=== PATIENT | female | born 1955 | race Caucasian/White ===

== ENCOUNTER 2022-03-12 10:55 | Observation (INO) ==
[2022-03-12] MEDS ORDERED: CEFEPIME 2,000 MG/20 ML VIAL IV STA (11:19)
[2022-03-12] MEDS ORDERED: SODIUM CHLORIDE 0.9% 1000ML 500 ML IV SCH ×2 (11:30→14:30)
[2022-03-12] MEDS ORDERED: SODIUM CHLORIDE 0.9% 1000ML 1,000 ML IV SCH (11:30)
[2022-03-12] MEDS ORDERED: ONDANSETRON INJ 2 MG/ML 2 ML VIAL IV STA (12:01)
[2022-03-12] MEDS ORDERED: fentaNYL citrate 100 MCG/2 ML VIAL IV ONE (12:01)
--- NOTE | 2022-03-12 12:08 | XRay Report ---
XR chest 1V portable CLINICAL HISTORY: Sepsis TECHNIQUE: Single frontal radiograph of the chest was obtained. Comparison: None available at the time of this dictation. FINDINGS: No lines and tubes are seen. The cardiomediastinal silhouette is normal. The lungs are clear. No evid ence of pleural effusion or pneumothorax. IMPRESSION: No acute abnormalities and in particular no evidence of pneumonia. ACT 112: Negative or not required by law. Electronically signed by: Chucky Cordova M.D. 03/12/2022 12:07 PM
[2022-03-12 12:13] LABS: Hematocrit (blood only) 36.9 % (34.1-44.9); Hemoglobin 12.5 g/dl (12.0-16.0); Mean Corpuscular Hemoglobin 33.1 pg (25.0-34.0); Mean Corpuscular Hgb Conc 33.9 g/dL (32.0-36.0); Mean Corpuscular Volume 97.6 fL (80.0-100.0); Mean Platelet Volume 8.9 fL (9.4-12.3); Platelet Count 287 K/uL (130-400); RDW Coefficient of Variation 16.1 % (11.5-14.5); RDW Standard Deviation 57.8 fL (36.4-46.3); Red Blood Count 3.78 M/uL (3.93-5.22); White Blood Count 5.45 K/ul (4.8-10.8)
[2022-03-12 12:26] LABS: Appearance Urine Cloudy (Clear); Bacteria Urine Automated 1+ (Negative); Bilirubin Urine Negative (Negative); Blood Urine 3+ (Negative); Color Urine Dark Yellow; Glucose Urine UA Negative (Negative); Ketones Urine 1+ (Negative); Leukocyte Esterase Urine 2+ (Negative); Nitrite Urine Positive (Negative); Protein Urine 1+ (Negative); RBC Urine Automated >30 /hpf (0-4); Specific Gravity Urine 1.019 (1.000-1.030); Urobilinogen Urine Negative (Negative); WBC Urine Automated >30 /hpf (0-5); pH Urine 5.5 (4.5-7.5)
[2022-03-12 12:34] LABS: Albumin Level 2.9 gm/dl (3.4-5.0); BUN Creatinine Ratio 28.6 (10-20); Bilirubin Direct 0.1 mg/dl (0-0.2); Bilirubin,Total 0.3 mg/dl (0.2-1.0); Calcium 8.8 mg/dl (8.5-10.1); Creatinine Clr Calc Pharmacy 52.1 ml/min; Est GFR (African American) 83.9 ml/min; Est GFR (Non-African American) 72.4 ml/min; Magnesium 2.1 mg/dl (1.7-2.4); Potassium 3.4 mmol/L (3.5-5.1); Total Protein 6.2 gm/dl (6.0-8.3)
[2022-03-12 12:39] LABS: Troponin I High Sensitivity 6.8 pg/ml (0-14)
[2022-03-12 12:43] LABS: Calcium Oxalate Crystals Urine Present (None Prsent)
[2022-03-12 12:57] LABS: Basophils # (auto) 0.03 K/uL (0-0.2); Basophils % (auto) 0.6 %; Eosinophils # (auto) 0.01 K/uL (0-0.50); Eosinophils % (auto) 0.2 %; Immature Granulocytes # (auto) 0.03 K/uL (0.00-0.02); Immature Granulocytes % (auto) 0.6 %; Lymphocytes # (auto) 0.15 K/uL (1.2-3.4); Lymphocytes % (auto) 2.8 %; Monocytes # (auto) 0.47 K/uL (0.24-0.82); Monocytes % (auto) 8.6 %; Neutrophils # (auto) 4.76 K/uL (1.4-6.5); Neutrophils % (auto) 87.2 %; Toxic Vacuolation 1+
--- NOTE | 2022-03-12 13:35 | CT Scan Report ---
CT abd pelvis wo con CLINICAL HISTORY: renal stone, sepsis TECHNIQUE: Helical axial images of the abdomen and pelvis were obtained. Automated dose lowering tech niques and/or adjustment according to patient size were utilized for this exam. This exam was perfor med without intravenous contrast. CT DOSE: 235.19 mGy.cm COMPARISON: Comparison is made to CT abdomen pelvis 12/14/2021 FINDINGS: Lower chest: Bronchiectasis, bronchial wall thickening, mucus plugging is seen in the left lower lob e. Liver: Unremarkable. No focal lesions are seen. Gallbladder and biliary tree: No calcified gallstones. Normal caliber wall. No intra- or extrahepatic biliary ductal dilation. Pancreas: Unremarkable, no focal lesions. Spleen: Unremarkable. Adrenals: Unremarkable. Kidneys and ureters: Nonobstructive nephrolithiasis is seen. There is an 11 mm cyst in the left kidne y inferior pole. Bladder: Whaley catheter is seen. Reproductive organs: Unremarkable. Bowel: The colon is unremarkable. There is diffuse small bowel wall thickening with mild distention, measuring up to 33 mm, without a firm transition point. Evaluation is limited due to the paucity of i ntra-abdominal fat. Lymph nodes Retroperitoneal: Unremarkable. Pelvic: Unremarkable. Mesenteric: Unremarkable. Peritoneum: Small amount of peritoneal fluid is seen most prominently surrounding the thickened loops of small bowel. Vessels: Atherosclerotic calcifications are seen. Abdominal wall: Unremarkable. Bones: Degenerative changes in the visualized spine. IMPRESSION: 1. There is marked thickening of the small bowel concerning for enteritis. 2. The large bowel appears unremarkable. 3. Nonobstructive nephrolithiasis is seen. ACT 112: Negative or not required by law. Electronically signed by: Chucky Cordova M.D. 03/12/2022 1:32 PM
[2022-03-12] MEDS ORDERED: LORazepam 2 MG/1 ML VIAL IV STA (14:57)
[2022-03-12] MEDS ORDERED: KETOROLAC TROMETHAMINE 15 MG/ML VIAL IV ONE (14:58)
[2022-03-12] MEDS ORDERED: FAMOTIDINE 20 MG in SYRINGE 3 ML IV STA (14:59)
[2022-03-12] MEDS ORDERED: D5W AND NSS 1,000 ML IV SCH (15:00)
--- NOTE | 2022-03-12 15:27 | History & Physical Report ---
Date of Service March 12, 2022 Assessment & Plan (1) UTI (urinary tract infection): Plan: -Admit to med/tele -Patient is currently afebrile, hemodynamically stable, and stable on RA -UA obtained in the ED in consistent with findigns for UTI -Was given one dose of cefepime in the ED, will continue with Ceftriaxone for now, patient denies a previous reaction to ceftriaxone -Patient has been experiencing bladder spasms with her UTI, will order 200 mg PO pyridium TID prn for a total of 2 days -Patient noted to be very dehydrated from diarrhea and poor oral intake, S/P 3L NSS in the ED, will continue with lactated ringer's at 80 ml/hr x 24 hours for hydration as she cannot tolerate po intake at this time -Start a clear liquid diet and advance as able -Urine and blood cultures ordered in the ED, follow (2) Enteritis: Plan: -Noted on CT of the abdomen/pelvis WO contrast today -No signs of bowel obstruction -Ideally we would give her Flagyl to cover anaerobes -Patient has a previously listed allergy to flagyl. Spoke to she and her sister regarding the reaction, they cannot remember the exact reaction but explained that it was no serious. They are ok with a trial and monitoring -Spoke to the ED Pharmacist, appreciate their assitance. Will give 50 mg IV Flagyl over 30 min and will monitor the patient for any reaction over 2 hours. If no reaction then will continue with full dosing after -PRN Solumedrol and benadryl ordered for allergic reaction -Plan explained to her nurse -Monitor on tele and pulse oximetry -Stool and C.diff studies ordered in the ED, follow when collected (3) Malignant neoplasm of anal canal: Plan: -Patient is S/P 21 rounds of radiation and chemo, last doses of both were on 03/03 -She received her care at [facility] In [place] -Records were requested by ED staff, will wait for their arrival (4) Hypokalemia: Plan: -Noted to be 3.4 today, mag WNL -Liekly from diarrhea and poor oral intake -Will give 3 doses of 10 meq IV KCL to avoid further GI upset -Follow AM BMP and mag (5) Migraines: Plan: -Continue topiramate and prn sumatriptan Plan The patient was seen with and discussed with Dr. 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 In the ED the patient was found to be afebrile, hemodynamically stable, tachycardic in the low 100's, and stable on RA. Labs were remarkable for WBC WNL, stable Hgb and platelets, stable renal function, potassium of 3.4, otherwise electrolytes WNL, stable liver function, procal of 2.90, UA indicative of UTI. Chest xray was read as negative for acute findings. CT of the abd/pelvis WO contrast was obtained due to abdominal pain and reported diarrhea and showed "1. There is marked thickening of the small bowel concerning for enteritis. 2. The large bowel appears unremarkable. 3. Nonobstructive nephrolithiasis is seen.". Prior to admission the patient was given a total of 3L NSS, cefepime, fentanyl, 10 mg toradol, 20 mg famotidine, and 1 mg IV ativan. At the time of the exam the patient was resting comfortably in bed in no acute distress with her sister sitting bedside, history was obtained from both. They state that the patient recently completed 21 sessions of radiation and chemotherapy in [place], last dose of both was on 03/03/22. She and her sister are usure of what chemotherapy she received but the ED staff has requested records from her other hospital. They state that since her last discharge on 03/03 the patient has experienced multiple daily episodes of diarrhea with poor oral intake. She states that she developed generalized abdominal pain yesterday. She rates it as an 8/10, cramping pain, which radiates to her back at times. She notes multiple episodes of non-bloody diarrhea daily despite her poor oral intake. She denies recent fevers, chills, chest pain, SOB, vomiting, and recent falls. Her sister notes that the patient has been weak on her legs recently with her poor oral intake. The patient has lost approximately 30 pounds since her diagnosis and treatment of her anal cancer. She also also noted increased BL LE edema since starting her treatment. I spoke to the patient regarding code status, she is a DNR/DNI. Her sister would make decisions for her if she could not make them herself. Rosemarie refer to Dr. Oliveira's attestation for any changes to the treatment plan Allergies Allergy/AdvReac Type Severity Reaction Status Date / Time acetaminophen [From Percocet] Allergy Mild Dizziness Verified 03/12/22 12:52 oxycodone [From Percocet] Allergy Mild Dizziness Verified 03/12/22 12:52 ciprofloxacin [From Cipro] Allergy Unknown Verified 03/12/22 12:52 Penicillins Allergy Unknown Verified 03/12/22 12:52 Sulfa (Sulfonamide Allergy Unknown Verified 03/12/22 12:52 Antibiotics) morphine Allergy Drowsy Verified 03/12/22 12:52 Avalox Allergy Unknown Unknown Uncoded 03/12/22 12:52 Flagyl Allergy Unknown Unknown Uncoded 03/12/22 12:52 Fluoroquinolones Allergy Unknown Unknown Uncoded 03/12/22 12:52 Levaquin Allergy Unknown Unknown Uncoded 03/12/22 12:52 Home Medications Medication Instructions Recorded Confirmed Type Lactobacillus acidophilus 10 5,000 mmu cells PO DAILY 12/23/21 03/12/22 History billion cell capsule acetaminophen 500 mg tablet 500 mg PO QID PRN Pain 12/23/21 03/12/22 History (Tylenol Extra Strength) hrmprek-ebotuxpresuik-blsxvrrx 250 1 tab PO Q6H PRN Headache 12/23/21 03/12/22 History mg-250 mg-65 mg tablet (Excedrin Migraine) cyclobenzaprine 10 mg tablet 10 mg PO TID PRN Muscle Spasm 12/23/21 03/12/22 History docusate sodium 100 mg capsule 100 mg PO BID 12/23/21 03/12/22 History (Colace) hydrocodone 5 mg-acetaminophen 325 1 tab PO Q6H PRN Pain 12/23/21 03/12/22 History mg tablet ibuprofen 200 mg capsule (Motrin 200 mg PO Q6H PRN Pain 12/23/21 03/12/22 History IB) magnesium 250 mg tablet 500 mg PO BID 12/23/21 03/12/22 History ranitidine HCl 150 mg tablet 150 mg PO DAILY PRN Acid Reflux 12/23/21 03/12/22 History sumatriptan succinate 100 mg 100 mg PO Q2H PRN Migraine Headache 12/23/21 03/12/22 History tablet (Imitrex) topiramate 100 mg tablet (Topamax) 100 mg PO BID 12/23/21 03/12/22 History diazepam 2 mg tablet 2 mg PO Q6H PRN Muscle Spasm 03/12/22 03/12/22 History naproxen 220 mg-pseudoephedrine 1 tab PO BID PRN Flu Symptoms 03/12/22 03/12/22 History 120 mg ER tablet, extend release,12 hr (Aleve Cold and Sinus) Past Med/Surg History Medical History (Updated 03/12/22 @ 16:10 by Tay Martinez PA-C) Kidney stones Malignant neoplasm of anus 11/18/21 Melanoma Removed from left scapula area Migraines Right trigger finger Had surgery for this Surgical History (Updated 12/23/21 @ 08:29 by Eli To RN) H/O right breast biopsy 4 yrs ago - benign History of hysterectomy Complete History of surgery 11/18/21 Anal/rectal exam under anesthesia Family History (Updated 12/23/21 @ 08:30 by Eli To, RN) Mother , 48yo Breast cancer Father , 52yo Multiple myeloma Myocardial infarction Brother No problems noted. Sister No problems noted. Sister Hypertension Son No problems noted. 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 All systems have been reviewed and are otherwise negative. Physical Exam Physical Exam: Physical Exam: General: In no acute distress, stated age, chachetic, non-toxic appearing HEENT: Normocephalic, atraumatic, no scleral icterus, pupils around round, symmetrical, and reactive to light, Dry mucus membranes, trachea midline, no thyromegaly Chest/Pulm: No respiratory distress, symmetrical chest expansion, clear breath sounds throughout Cardiac: RRR, no murmurs noted Abdomen: Negative for ascites and bruising, hypoactive bowel sounds, soft, tender to palpation throughout Musculoskeletal: Symmetrical and without signs of acute trauma, upper and lower extremities with full ROM, no atrophy, spasticity, or flaccidity Extremities: Radial, dorsalis pedis, and posterior tibial pulses are intact and symmetrical, 2+ pitting edema noted in the BL LE's Skin: Warm, dry, no rashes , lesions, or scars noted Neuro: Alert and oriented to person, place, month, year, and president, no focal defects, CN II-XII tested and intact, finger to nose test negative, no tremors noted Psych: No acute distress, calm and cooperative during the exam Results & Data Results & Data ([facility]) Vital Signs (Past 12 Hours) Vital Signs Temp Pulse Pulse Resp BP BP Pulse Ox 03/12/22 14:13 103 H 20 105/62 95 03/12/22 14:00 101 H 20 105/62 94 03/12/22 12:55 103 H 20 108/61 94 03/12/22 12:13 97 H 20 107/62 97 03/12/22 11:19 96 H 20 114/69 98 03/12/22 11:19 100 03/12/22 11:02 36.1 C L 114 H 20 90/64 L 95 O2 Del Method 03/12/22 14:13 Room Air 03/12/22 14:00 Room Air 03/12/22 12:55 Room Air 03/12/22 12:13 Room Air 03/12/22 11:19 Room Air 03/12/22 11:19 Room Air 03/12/22 11:02 Room Air Laboratory Results Abnormal lab results 03/12/22 03/12/22 03/12/22 Range/Units 11:40 11:40 11:40 RBC 3.78 L (3.93-5.22) M/uL RDW Std Deviation 57.8 H (36.4-46.3) fL RDW Coeff of Maru 16.1 H (11.5-14.5) % MPV 8.9 L (9.4-12.3) fL Lymph # (Auto) 0.15 L (1.2-3.4) K/uL Immature Gran # (Auto) 0.03 H (0.00-0.02) K/uL Potassium 3.4 L (3.5-5.1) mmol/L BUN 24 H (6-23) mg/dl BUN/Creatinine Ratio 28.6 H (10-20) Glucose 115 H (70-99(Fasting)) mg/dl AST 11 L (13-39) U/L Albumin 2.9 L (3.4-5.0) gm/dl Procalcitonin 2.90 H (0-0.5) ng/ml Urine Appearance (Clear) Urine Protein (Negative) Urine Ketones (Negative) Urine Blood (Negative) Urine Nitrite (Negative) Ur Leukocyte Esterase (Negative) Urine WBC (Auto) (0-5) /hpf Urine RBC (Auto) (0-4) /hpf U Epithel Cells (Auto) (0-5) /lpf Urine Bacteria (Auto) (Negative) Calcium Oxalate Crystal (None Prsent) 03/12/22 Range/Units 11:40 RBC (3.93-5.22) M/uL RDW Std Deviation (36.4-46.3) fL RDW Coeff of Maru (11.5-14.5) % MPV (9.4-12.3) fL Lymph # (Auto) (1.2-3.4) K/uL Immature Gran # (Auto) (0.00-0.02) K/uL Potassium (3.5-5.1) mmol/L BUN (6-23) mg/dl BUN/Creatinine Ratio (10-20) Glucose (70-99(Fasting)) mg/dl AST (13-39) U/L Albumin (3.4-5.0) gm/dl Procalcitonin (0-0.5) ng/ml Urine Appearance Cloudy A (Clear) Urine Protein 1+ H (Negative) Urine Ketones 1+ H (Negative) Urine Blood 3+ H (Negative) Urine Nitrite Positive A (Negative) Ur Leukocyte Esterase 2+ H (Negative) Urine WBC (Auto) >30 H (0-5) /hpf Urine RBC (Auto) >30 H (0-4) /hpf U Epithel Cells (Auto) 5-10 H (0-5) /lpf Urine Bacteria (Auto) 1+ H (Negative) Calcium Oxalate Crystal Present A (None Prsent) Diagnostic Findings Chest X-Ray 03/12/22 11:19 XR chest 1V portable CLINICAL HISTORY: Sepsis TECHNIQUE: Single frontal radiograph of the chest was obtained. Comparison: None available at the time of this dictation. FINDINGS: No lines and tubes are seen. The cardiomediastinal silhouette is normal. The lungs are clear. No evidence of pleural effusion or pneumothorax. IMPRESSION: No acute abnormalities and in particular no evidence of pneumonia. ACT 112: Negative or not required by law. Electronically signed by: Chucky Cordova M.D. 03/12/2022 12:07 PM Abdomen/Pelvis CT 03/12/22 11:20 CT abd pelvis wo con CLINICAL HISTORY: renal stone, sepsis TECHNIQUE: Helical axial images of the abdomen and pelvis were obtained. Automated dose lowering techniques and/or adjustment according to patient size were utilized for this exam. This exam was performed without intravenous contrast. CT DOSE: 235.19 mGy.cm COMPARISON: Comparison is made to CT abdomen pelvis 12/14/2021 FINDINGS: Lower chest: Bronchiectasis, bronchial wall thickening, mucus plugging is seen in the left lower lobe. Liver: Unremarkable. No focal lesions are seen. Gallbladder and biliary tree: No calcified gallstones. Normal caliber wall. No intra- or extrahepatic biliary ductal dilation. Pancreas: Unremarkable, no focal lesions. Spleen: Unremarkable. Adrenals: Unremarkable. Kidneys and ureters: Nonobstructive nephrolithiasis is seen. There is an 11 mm cyst in the left kidney inferior pole. Bladder: Whaley catheter is seen. Reproductive organs: Unremarkable. Bowel: The colon is unremarkable. There is diffuse small bowel wall thickening with mild distention, measuring up to 33 mm, without a firm transition point. Evaluation is limited due to the paucity of intra-abdominal fat. Lymph nodes Retroperitoneal: Unremarkable. Pelvic: Unremarkable. Mesenteric: Unremarkable. Peritoneum: Small amount of peritoneal fluid is seen most prominently surrounding the thickened loops of small bowel. Vessels: Atherosclerotic calcifications are seen. Abdominal wall: Unremarkable. Bones: Degenerative changes in the visualized spine. IMPRESSION: 1. There is marked thickening of the small bowel concerning for enteritis. 2. The large bowel appears unremarkable. 3. Nonobstructive nephrolithiasis is seen. ACT 112: Negative or not required by law. Electronically signed by: Chucky Cordova M.D. 03/12/2022 1:32 PM ECG Additional Comments: Poor data quality, interpretation may be adversely affected Normal sinus rhythm Right atrial enlargement Borderline ECG No previous ECGs available Code Status & VTE Plan Code Status DNR/DNI VTE Prophylaxis Plan VTE Prophylaxis will be ordered: Yes Supervising Physician Co-Signing Physician Notes Patient seen and examined, chart reviewed, case discussed with Tay Martinez PA-C and I agree with the assessment and plan as above except as otherwise noted Labs and images reviewed Nena is a 66-year-old female with a past medical history of migraines, SCC of the anus Tx with chemoradiation, anxiety who presented with abdominal discomfort. Patient recently completed radiation/chemotherapy in [place] as noted. Records are pending. Yesterday patient developed crampy abdominal pain radiating to the back and nonbloody diarrhea with poor p.o. intake. No vomiting. On ER assessment patient is tachycardic, borderline hypotensive, with poor p.o. intake, and with CT showing evidence of small bowel thickening concerning for enteritis. At bedside patient denies fever/chills, has some abdominal discomfort which persists, and endorses continued ongoing diarrhea. No chest pain/chest pressure/difficulty breathing. Given underlying cancer and chemotherapy patient was recommended for additional supportive care and treatment,. CT shows nonobstructive nephrolithiasis, no obstructing stones are present. UA is infected appearing, UC pending. Antibiotics narrowed to Rocephin, given a dose of Flagyl for enteric coverage pending PCR results. Agree with management above. Patient is nondistressed/nontoxic at bedside. She reports she has multiple allergies and is not sure of the reaction, she reports she has never had any allergic reaction which involved her airway/lip/tongue/throat. Pt has an identical twin with similar allergies who is at bedside, reports she does not think she is allergic to Flagyl. PG Care Time/CCT Total # of Minutes Spent Total Time Spent with Patient: Total time spent is greater than 50% in coordination of care (as documented) at patient's floor/unit and/or counseling patient: Coding [place] [address] Initial Inpt Care Lvl 3 Patient Type Established Medical Decision Making High Complexity Diagnoses UTI (urinary tract infection) N39.0 Enteritis K52.9 Malignant neoplasm of anal canal C21.1 Hypokalemia E87.6 Migraines G43.909
[2022-03-12] MEDS: POTASSIUM CHLORIDE / WTR 10 MEQ/100 ML PLCT IV SCH ×3 (15:40→17:48)
[2022-03-12] MEDS ORDERED: diphenhydrAMINE 50 MG/ML VIAL IV PRN (15:56)
[2022-03-12] MEDS ORDERED: methylPREDNISolone 125 MG/2 ML VIAL IV PRN (15:56)
[2022-03-12] MEDS ORDERED: METRONIDAZOLE IV STA (15:59)
[2022-03-12] MEDS ORDERED: PHENAZOPYRIDINE HCL 200 MG TAB PO PRN (16:02)
[2022-03-12] MEDS ORDERED: methylPREDNISolone 60 MG in SYRINGE 0 ML IV PRN (16:09)
[2022-03-12] MEDS ORDERED: cefTRIAXone SODIUM 2,000 MG in DEXTROSE 5% 50 ML IV SCH (16:30)
[2022-03-12] MEDS: LACTATED RINGER'S 1,000 ML IV SCH (16:43)
[2022-03-12] MEDS ORDERED: CYCLOBENZAPRINE HCL 10 MG TAB PO PRN (17:55)
[2022-03-12] MEDS ORDERED: SUMAtriptan succinate 100 MG TAB PO PRN (17:55)
[2022-03-12] MEDS ORDERED: diazePAM 2 MG TABLET PO PRN (17:55)
[2022-03-12] MEDS: metroNIDAZOLE 500 MG/100 ML BAG IV SCH (20:41)
[2022-03-12] MEDS: PANTOprazole 40 MG in SYRINGE 0 ML IV SCH (20:43)
[2022-03-12] MEDS: TOPIRAMATE 100 MG TAB PO SCH (20:43)
[2022-03-12] MEDS: MAGNESIUM OXIDE 400 MG TAB PO SCH (20:43)
[2022-03-13] MEDS ORDERED: IBUPROFEN 600 MG TAB PO STA (02:53)
[2022-03-13] MEDS: LACTATED RINGER'S 1,000 ML IV SCH ×3 (03:41→17:40)
[2022-03-13] MEDS: metroNIDAZOLE 500 MG/100 ML BAG IV SCH ×2 (03:41→12:05)
--- NOTE | 2022-03-13 06:13 | Electrocardiogram Report ---
Test Reason : Blood Pressure : / mmHG Vent. Rate : 096 BPM Atrial Rate : 096 BPM P-R Int : 148 ms QRS Dur : 078 ms QT Int : 394 ms P-R-T Axes : 092 088 091 degrees QTc Int : 497 ms Poor data quality, interpretation may be adversely affected Normal sinus rhythm Right atrial enlargement Borderline ECG No previous ECGs available Confirmed by Adria Cash ([id number]) on 03/13/2022 6:13:07 AM Referred By: REFERRED SELF Confirmed By:Adria Cash
[2022-03-13] MEDS: MAGNESIUM OXIDE 400 MG TAB PO SCH ×2 (07:34→20:17)
[2022-03-13] MEDS: TOPIRAMATE 100 MG TAB PO SCH ×2 (07:34→20:18)
[2022-03-13] MEDS: ADVANCED PROBIOTIC 1250 MG CAPSULE PO SCH (07:34)
[2022-03-13] MEDS: PANTOprazole 40 MG in SYRINGE 0 ML IV SCH (07:34)
[2022-03-13] MEDS ORDERED: CEFEPIME 1,000 MG in SYRINGE 0 ML IV SCH (09:00)
[2022-03-13 09:01] LABS: Hematocrit (blood only) 31.5 % (34.1-44.9); Hemoglobin 10.6 g/dl (12.0-16.0); Mean Corpuscular Hemoglobin 32.9 pg (25.0-34.0); Mean Corpuscular Hgb Conc 33.7 g/dL (32.0-36.0); Mean Corpuscular Volume 97.8 fL (80.0-100.0); Platelet Count 237 K/uL (130-400); RDW Coefficient of Variation 16.5 % (11.5-14.5); Red Blood Count 3.22 M/uL (3.93-5.22); White Blood Count 3.23 K/ul (4.8-10.8)
[2022-03-13 09:52] LABS: Albumin Globulin Ratio 0.9 (0.9-2); Albumin Level 2.3 gm/dl (3.4-5.0); BUN Creatinine Ratio 17.8 (10-20); Bilirubin,Total 0.3 mg/dl (0.2-1.0); Calcium 7.5 mg/dl (8.5-10.1); Est GFR (African American) 99.5 ml/min; Est GFR (Non-African American) 85.8 ml/min; Globulin 2.5 gm/dl (2.5-4.0); Magnesium 1.9 mg/dl (1.7-2.4); Potassium 3.6 mmol/L (3.5-5.1); Total Protein 4.8 gm/dl (6.0-8.3)
[2022-03-13] MEDS: HYDROCODONE/ACETAMOPHEN 5/325MG TAB PO PRN ×2 (12:04→23:27)
[2022-03-13 13:39] LABS: Adenovirus F 40/41 PCR Not Detected (NotDetected); Astrovirus PCR Not Detected (NotDetected); Campylobacter PCR Not Detected (NotDetected); Cryptosporidium PCR Not Detected (NotDetected); Cyclospora cayetanensis PCR Not Detected (NotDetected); Entamoeba histolytica PCR Not Detected (NotDetected); Enteroaggregative E.coli(EAEC) Not Detected (NotDetected); Enteropathogenic E.coli (EPEC) Not Detected (NotDetected); Enterotoxigenic E.coli (ETEC) Not Detected (NotDetected); Giardia lamblia PCR Not Detected (NotDetected); Norovirus GI/GII PCR Not Detected (NotDetected); Plesiomonas shigelloides PCR Not Detected (NotDetected); Rotavirus A PCR Not Detected (NotDetected); Salmonella PCR Not Detected (NotDetected); Sapovirus PCR Not Detected (NotDetected); Shiga-like Toxin E.coli (STEC) Not Detected (NotDetected); Shigella/Enteroinvasive E.coli Not Detected (NotDetected); Vibrio cholerae PCR Not Detected (NotDetected); Vibrio species PCR Not Detected (NotDetected); Yersinia enterocolitica PCR Not Detected (NotDetected)
--- NOTE | 2022-03-13 18:02 | Hospitalist Progress Note ---
Date of Service March 13, 2022 Assessment & Plan (1) UTI (urinary tract infection): Plan: - Likely Pseudomonasceftriaxone stopped and cefepime started today -Patient is currently afebrile, hemodynamically stable, and stable on RA BP in the 90sstill quite hypovolemicpoor appetite last 3 to 4 weeks and 35 pound weight loss Telemetry discontinued -Patient has been experiencing bladder spasms with her UTI- on 200 mg PO pyridium TID prn for a total of 2 days Dehydration: Increased lactated ringer's to 125 ml/hr x 24 hours for hydration Regular diet started Urged to drink more fluids of her choice The patient was discharged 5 days ago 03/08 from [facility] after left hydronephrosis was diagnosed with bilateral nonobstructing renal calculi. Whaley was removed and she was voiding at discharge. He was started on diazepam there for renal colic. Will stop. Blood pressures there were 90s/ 60s over 3 days. Potassium 3.4-3.7, sinus tachycardia noted Whaley has been removed today here. -Urine and blood cultures pending final (2) Depression: Plan: Is single, no children and lives with 3 cats. Has a supportive twin sister in the same town. Wants to go back to work in the [employer]. Admits to crying spells. Check TSH and B12 Started Lexapro 10 mg with her consent today (3) Malignant neoplasm of anal canal: Plan: -Patient is S/P 21 rounds of radiation and chemo, last doses of both were on 03/03 -She received her care at [facility] In [place] (4) Hypokalemia: Plan: -Normalized potassium 3.6 today -Follow AM BMP and mag (5) Migraines: Plan: -Continue topiramate and prn sumatriptan Plan The patient is ambulating on her own. Once euvolemic and final urine culture back can be discharged home. Has an appointment 03/15 with oncology and [place] and in March sees radiation oncology Of significance, the patient states she does not want any further treatments. She told me if her cancer has spread she does not want to know about it. I reassured her that we have no indication it has and it was not metastatic per radiation oncology note from December 23. Admission and Anticipated Discharge Date Admission Date: March 12, 2022 Subjective seen at 1545 h Complains of epigastric pain extending to the upper chest and going through to the back for the last 10 days along with poor appetite since she had radiation chemotherapy for anal cancer. This therapy finished 10 days ago. She is lost 35 pounds in the last 3 weeks. She feels very weak and tired but is able to walk. Denies nausea or vomiting. Mitts to depressed mood and crying spells. Occasionally has loose stools and denies any mucus in the stool. Today had stool of pudding consistency which was sent sample to the lab. Also has intermittent migraines which are longstanding and treated with Imitrex as needed. Usually has 3 bowel movements a day. No fever at home. Postnasal drip on and off. Cough with brownish-brownish sputum lately. No shortness of breath. 50 pack history of smoking and is down to 5 cigarettes a day. Started cutting down from 1 pack to 5 cigarettes earlier this year Physical Exam Physical Exam: Pleasant thin lady, lucid historian who cannot give me a very detailed history starting from when she was initially diagnosed with hemorrhoids and 6 months later with rectal cancer. 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 Psych good insight and judgment, briefly tearful Abdomen mild epigastric tenderness and some right lower quadrant tenderness, there is a linear area of breakdown from the lower sacrum to the anus Skin diffuse erythema of the perineum and labia area Results & Data Results & Data ([facility]) Vital Signs (Past 12 Hours) Vital Signs Temp Pulse Pulse Resp BP Pulse Ox Pulse Ox 03/13/22 11:19 94 03/13/22 15:07 36.7 C 81 18 91/55 L 94 03/13/22 11:11 36.4 C L 88 18 91/50 L 95 03/13/22 08:01 36.7 C 86 20 93/51 L 93 03/13/22 07:21 92 H O2 Del Method O2 Del Method 03/13/22 11:19 Room Air 03/13/22 15:07 Room Air 03/13/22 11:11 Room Air 03/13/22 08:01 Room Air 03/13/22 07:21 Laboratory Results Abnormal lab results 03/13/22 03/13/22 Range/Units 08:27 08:27 WBC 3.23 L (4.8-10.8) K/ul RBC 3.22 L (3.93-5.22) M/uL Hgb 10.6 L (12.0-16.0) g/dl Hct 31.5 L (34.1-44.9) % RDW Std Deviation 58.0 H (36.4-46.3) fL RDW Coeff of Maru 16.5 H (11.5-14.5) % MPV 9.0 L (9.4-12.3) fL Chloride 109 H (98-107) mmol/L Calcium 7.5 L (8.5-10.1) mg/dl AST 8 L (13-39) U/L Total Protein 4.8 L D (6.0-8.3) gm/dl Albumin 2.3 L (3.4-5.0) gm/dl Medications Administered Home Medications Medication Instructions Recorded Confirmed Last Taken Lactobacillus acidophilus 10 5,000 mmu cells PO DAILY 12/23/21 03/12/22 03/12/22 billion cell capsule acetaminophen 500 mg tablet 500 mg PO QID PRN Pain 12/23/21 03/12/22 Unknown (Tylenol Extra Strength) [id number]-dgukrdlriqrub-jrzrvfog 250 1 tab PO Q6H PRN Headache 12/23/21 03/12/22 Unknown mg-250 mg-65 mg tablet (Excedrin Migraine) cyclobenzaprine 10 mg tablet 10 mg PO TID PRN Muscle Spasm 12/23/21 03/12/22 Unknown docusate sodium 100 mg capsule 100 mg PO BID 12/23/21 03/12/22 03/12/22 (Colace) hydrocodone 5 mg-acetaminophen 325 1 tab PO Q6H PRN Pain 12/23/21 03/12/22 03/12/22 mg tablet ibuprofen 200 mg capsule (Motrin 200 mg PO Q6H PRN Pain 12/23/21 03/12/22 03/12/22 IB) magnesium 250 mg tablet 500 mg PO BID 12/23/21 03/12/22 03/12/22 ranitidine HCl 150 mg tablet 150 mg PO DAILY PRN Acid Reflux 12/23/21 03/12/22 Unknown sumatriptan succinate 100 mg 100 mg PO Q2H PRN Migraine Headache 12/23/21 03/12/22 Unknown tablet (Imitrex) topiramate 100 mg tablet (Topamax) 100 mg PO BID 12/23/21 03/12/22 03/12/22 diazepam 2 mg tablet 2 mg PO Q6H PRN Muscle Spasm 03/12/22 03/12/22 Unknown naproxen 220 mg-pseudoephedrine 1 tab PO BID PRN Flu Symptoms 03/12/22 03/12/22 Unknown 120 mg ER tablet, extend release,12 hr (Aleve Cold and Sinus) Active Medications Generic Name Dose Route Start Last Admin Trade Name Freq PRN Reason Stop Dose Admin Hydrocodone Bitart/Acetaminophen 1 tab 03/12/22 17:55 03/13/22 12:04 Hydrocodone/Acetamophen 5/325mg Tab PO 03/26/22 17:54 1 tab Q6H PRN Administration Pain Cyclobenzaprine HCl 10 mg 03/12/22 17:55 03/13/22 12:05 Cyclobenzaprine Hcl 10 Mg Tab PO 04/11/22 17:54 10 mg TID PRN Administration Muscle Spasm Diazepam 2 mg 03/12/22 17:55 03/12/22 22:21 Diazepam 2 Mg Tablet PO 04/11/22 17:54 2 mg Q6H PRN Administration Muscle Spasm Lactated Ringer's 1,000 mls @ 125 mls/hr 03/13/22 17:30 03/13/22 17:40 Lr IV 03/14/22 09:29 125 mls/hr .Q8H HILARIA Administration Lactobacillus Acidophilus 1 cap 03/13/22 09:00 03/13/22 07:34 Advanced Probiotic 1250 Mg Capsule PO 04/12/22 08:59 1 cap DAILY HILARIA Administration Magnesium Oxide 400 mg 03/12/22 21:00 03/13/22 07:34 Magnesium Oxide 400 Mg Tab PO 04/11/22 20:59 400 mg BID HILARIA Administration Topiramate 100 mg 03/12/22 21:00 03/13/22 07:34 Topiramate 100 Mg Tab PO 04/11/22 20:59 100 mg BID HILARIA Administration PG Care Time/CCT Total # of Minutes Spent Total Time Spent with Patient: Total time spent is greater than 50% in coordination of care (as documented) at patient's floor/unit and/or counseling patient: Coding Level of Care Code 99196 Subseq Hosp Care Lvl 3 Diagnoses UTI (urinary tract infection) N39.0 Depression F32.A Malignant neoplasm of anal canal C21.1 Hypokalemia E87.6 Migraines G43.909
[2022-03-13] MEDS: CEFEPIME 2,000 MG in SYRINGE 0 ML IV SCH (20:17)
[2022-03-13] MEDS ORDERED: LOPERAMIDE HCL 2 MG CAP PO STA (23:27)
[2022-03-14] MEDS: LACTATED RINGER'S 1,000 ML IV SCH (00:14)
[2022-03-14 07:08] LABS: Hematocrit (blood only) 29.8 % (34.1-44.9); Hemoglobin 10.1 g/dl (12.0-16.0); Mean Corpuscular Hemoglobin 32.7 pg (25.0-34.0); Mean Corpuscular Hgb Conc 33.9 g/dL (32.0-36.0); Mean Corpuscular Volume 96.4 fL (80.0-100.0); Mean Platelet Volume 9.4 fL (9.4-12.3); Platelet Count 218 K/uL (130-400); RDW Coefficient of Variation 16.2 % (11.5-14.5); RDW Standard Deviation 56.7 fL (36.4-46.3); Red Blood Count 3.09 M/uL (3.93-5.22); White Blood Count 2.76 K/ul (4.8-10.8)
[2022-03-14 07:43] LABS: Albumin Globulin Ratio 0.9 (0.9-2); Albumin Level 2.1 gm/dl (3.4-5.0); BUN Creatinine Ratio 13.4 (10-20); Bilirubin,Total 0.2 mg/dl (0.2-1.0); Calcium 7.4 mg/dl (8.5-10.1); Creatinine Clr Calc Pharmacy 65.3 ml/min; Est GFR (African American) 106.2 ml/min; Est GFR (Non-African American) 91.6 ml/min; Globulin 2.3 gm/dl (2.5-4.0); Potassium 3.3 mmol/L (3.5-5.1); Prealbumin 6.1 mg/dl (20-40); Total Protein 4.4 gm/dl (6.0-8.3)
[2022-03-14] MEDS: ESCITALOPRAM OXALATE 10 MG TAB PO SCH (07:59)
[2022-03-14] MEDS: MAGNESIUM OXIDE 400 MG TAB PO SCH ×2 (08:00→20:27)
[2022-03-14] MEDS: ADVANCED PROBIOTIC 1250 MG CAPSULE PO SCH (08:00)
[2022-03-14] MEDS: PANTOprazole 40 MG TAB PO SCH (08:00)
[2022-03-14] MEDS: TOPIRAMATE 100 MG TAB PO SCH ×2 (08:00→20:29)
[2022-03-14] MEDS: CEFEPIME 2,000 MG in SYRINGE 0 ML IV SCH (08:00)
[2022-03-14] MEDS ORDERED: ESCITALOPRAM OXALATE 10 MG TAB PO SCH (09:00)
[2022-03-14] MEDS ORDERED: ONDANSETRON INJ 2 MG/ML 2 ML VIAL IV STA (09:14)
[2022-03-14] MEDS ORDERED: ONDANSETRON INJ 2 MG/ML 2 ML VIAL ONE (09:19)
[2022-03-14] MEDS ORDERED: LACTATED RINGER'S 1,000 ML IV SCH (09:45)
[2022-03-14] MEDS: POTASSIUM CHLORIDE / WTR 10 MEQ/100 ML PLCT IV SCH ×3 (10:51→12:57)
--- NOTE | 2022-03-14 12:03 | Hospitalist Progress Note ---
Date of Service March 14, 2022 Assessment & Plan (1) UTI (urinary tract infection): Plan: - Pseudomonas UTIcefepime day 1. Started ciprofloxacin after stopping cefepime today. Total 3 days antibiotics -Patient is currently afebrile, hemodynamically stable, and stable on RA BP in the 90sstill quite hypovolemicpoor appetite last 3 to 4 weeks and 35 pound weight loss -Patient has been experiencing bladder spasms with her UTI- on 200 mg PO pyridium TID prn for a total of 2 days Dehydration improving. BP better The patient was discharged 03/08 from [facility] after left hydronephrosis was diagnosed with bilateral nonobstructing renal calculi. Whaley was removed and she was voiding at discharge. He was started on diazepam there for renal colic. Will stop. Blood pressures there were 90s/ 60s over 3 days. Potassium 3.4-3.7, sinus tachycardia noted -Urine and blood cultures pending final (2) Depression: Plan: Is single, no children and lives with 3 cats. Has a supportive twin sister in the same town. Wants to go back to work in the [employer]. Admits to crying spells. TSH and B12 normal Started Lexapro 10 mg with her consent today (3) Malignant neoplasm of anal canal: Plan: -Patient is S/P 21 rounds of radiation and chemo, last doses of both were on 03/03 -She received her care at [facility] In [place] per admitting provider. 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 -Follow AM BMP and mag (5) Protein calorie malnutrition: Plan: Prealbumin only 6. Dietitian for boost supplements Patient is not aware of this diagnosis she is lost appetite and is eating only 20% or so for meals. Keeps saying she wants pizza and hobbies. 35 pound weight loss in the last few months. (6) Migraines: Plan: -Continue topiramate and prn sumatriptan Plan The patient is ambulating on her own. Anticipate discharge in the morning has an appointment 03/15 with oncology (patient has been asked to postpone to next week) and [place] and in March sees radiation oncology Of significance, the patient states she does not want any further treatments. She told me if her cancer has spread she does not want to know about it. I reassured her that we have no indication it has and it was not metastatic per radiation oncology note from December 23. 03/14 declined palliative care consult for advice.. Admission and Anticipated Discharge Date Admission Date: March 12, 2022 Subjective seen 1145 h Had a BM soft today. Wants a dulcolax suppository for full evacuation Was tearful this am reports nursingconcerned about needing hospital stays post chemo ended Feb-this is her second hospitalization since 03 March Epigastric pain and bloating still there. 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 Psych: good insight and judgment, appropriate affect, Abdomen mild epigastric tenderness,minimal guarding, Results & Data Results & Data ([facility]) Vital Signs (Past 12 Hours) Vital Signs Temp Pulse Resp BP Pulse Ox O2 Del Method 03/14/22 09:00 Room Air 03/14/22 07:36 36.7 C 87 18 102/64 94 Room Air Laboratory Results Abnormal lab results 03/14/22 03/14/22 03/14/22 Range/Units 06:30 06:30 06:30 WBC 2.76 L (4.8-10.8) K/ul RBC 3.09 L (3.93-5.22) M/uL Hgb 10.1 L (12.0-16.0) g/dl Hct 29.8 L (34.1-44.9) % RDW Std Deviation 56.7 H (36.4-46.3) fL RDW Coeff of Maru 16.2 H (11.5-14.5) % Potassium 3.3 L (3.5-5.1) mmol/L Chloride 108 H (98-107) mmol/L Calcium 7.4 L (8.5-10.1) mg/dl AST 9 L (13-39) U/L Total Protein 4.4 L (6.0-8.3) gm/dl Albumin 2.1 L (3.4-5.0) gm/dl Globulin 2.3 L (2.5-4.0) gm/dl Prealbumin 6.1 L (20-40) mg/dl Vitamin B12 1252 H (180-914) pg/ml TSH (0.300-4.500) uIu/ml 03/14/22 Range/Units 06:30 WBC (4.8-10.8) K/ul RBC (3.93-5.22) M/uL Hgb (12.0-16.0) g/dl Hct (34.1-44.9) % RDW Std Deviation (36.4-46.3) fL RDW Coeff of Maru (11.5-14.5) % Potassium (3.5-5.1) mmol/L Chloride (98-107) mmol/L Calcium (8.5-10.1) mg/dl AST (13-39) U/L Total Protein (6.0-8.3) gm/dl Albumin (3.4-5.0) gm/dl Globulin (2.5-4.0) gm/dl Prealbumin (20-40) mg/dl Vitamin B12 (180-914) pg/ml TSH 5.818 H (0.300-4.500) uIu/ml Medications Administered Home Medications Medication Instructions Recorded Confirmed Last Taken Lactobacillus acidophilus 10 5,000 mmu cells PO DAILY 12/23/21 03/12/22 03/12/22 billion cell capsule acetaminophen 500 mg tablet 500 mg PO QID PRN Pain 12/23/21 03/12/22 Unknown (Tylenol Extra Strength) gdvpihs-otbhdtmqtvfrn-prorzcgf 250 1 tab PO Q6H PRN Headache 12/23/21 03/12/22 Unknown mg-250 mg-65 mg tablet (Excedrin Migraine) cyclobenzaprine 10 mg tablet 10 mg PO TID PRN Muscle Spasm 12/23/21 03/12/22 Unknown docusate sodium 100 mg capsule 100 mg PO BID 12/23/21 03/12/22 03/12/22 (Colace) hydrocodone 5 mg-acetaminophen 325 1 tab PO Q6H PRN Pain 12/23/21 03/12/22 03/12/22 mg tablet ibuprofen 200 mg capsule (Motrin 200 mg PO Q6H PRN Pain 12/23/21 03/12/22 03/12/22 IB) magnesium 250 mg tablet 500 mg PO BID 12/23/21 03/12/22 03/12/22 ranitidine HCl 150 mg tablet 150 mg PO DAILY PRN Acid Reflux 12/23/21 03/12/22 Unknown sumatriptan succinate 100 mg 100 mg PO Q2H PRN Migraine Headache 12/23/21 03/12/22 Unknown tablet (Imitrex) topiramate 100 mg tablet (Topamax) 100 mg PO BID 12/23/21 03/12/22 03/12/22 diazepam 2 mg tablet 2 mg PO Q6H PRN Muscle Spasm 03/12/22 03/12/22 Unknown naproxen 220 mg-pseudoephedrine 1 tab PO BID PRN Flu Symptoms 03/12/22 03/12/22 Unknown 120 mg ER tablet, extend release,12 hr (Aleve Cold and Sinus) Active Medications Generic Name Dose Route Start Last Admin Trade Name Freq PRN Reason Stop Dose Admin Hydrocodone Bitart/Acetaminophen 1 tab 03/12/22 17:55 03/13/22 23:27 Hydrocodone/Acetamophen 5/325mg Tab PO 03/26/22 17:54 1 tab Q6H PRN Administration Pain Cyclobenzaprine HCl 10 mg 03/12/22 17:55 03/13/22 12:05 Cyclobenzaprine Hcl 10 Mg Tab PO 04/11/22 17:54 10 mg TID PRN Administration Muscle Spasm Escitalopram Oxalate 5 mg 03/14/22 09:00 03/14/22 07:59 Escitalopram Oxalate 10 Mg Tab PO 04/13/22 08:59 5 mg QAM HILARIA Administration Cefepime HCl 2,000 mg/ Syringe 20 mls @ 5 mls/min 03/13/22 21:00 03/14/22 08:00 IV 03/23/22 08:59 5 mls/min Q12 HILARIA Administration Lactated Ringer's 1,000 mls @ 100 mls/hr 03/14/22 09:45 03/14/22 09:45 Lr IV 04/13/22 09:44 100 mls/hr .Q10H HILARIA Administration Potassium Chloride 10 meq in 100 mls @ 100 mls/hr 03/14/22 10:45 03/14/22 11:56 K Avery / Wtr IV 03/14/22 13:44 100 mls/hr Q1H HILARIA Administration Lactobacillus Acidophilus 1 cap 03/13/22 09:00 03/14/22 08:00 Advanced Probiotic 1250 Mg Capsule PO 04/12/22 08:59 1 cap DAILY HILARIA Administration Magnesium Oxide 400 mg 03/12/22 21:00 03/14/22 08:00 Magnesium Oxide 400 Mg Tab PO 04/11/22 20:59 Not Given BID HILARIA Pantoprazole Sodium 40 mg 03/14/22 09:00 03/14/22 08:00 Pantoprazole 40 Mg Tab PO 04/13/22 08:59 40 mg QAM HILARIA Administration Topiramate 100 mg 03/12/22 21:00 03/14/22 08:00 Topiramate 100 Mg Tab PO 04/11/22 20:59 100 mg BID HILARIA Administration PG Care Time/CCT Total # of Minutes Spent Total Time Spent with Patient: Total time spent is greater than 50% in coordination of care (as documented) at patient's floor/unit and/or counseling patient: Coding Level of Care Code 17754 Subseq Hosp Care Lvl 2 Diagnoses UTI (urinary tract infection) N39.0 Depression F32.A Malignant neoplasm of anal canal C21.1 Hypokalemia E87.6 Protein calorie malnutrition E46 Migraines G43.909
[2022-03-14] MEDS ORDERED: bisacodyL 5 MG TABEC PO ONE (12:07)
[2022-03-14] MEDS: SUCRALFATE 1 GM/10 ML UDC PO SCH ×2 (13:51→20:27)
[2022-03-14] MEDS ORDERED: Nursing to Pharmacy Communication SCH (18:00)
[2022-03-14] MEDS: HYDROCODONE/ACETAMOPHEN 5/325MG TAB PO PRN (18:04)
[2022-03-14] MEDS: ONDANSETRON INJ 2 MG/ML 2 ML VIAL IV PRN (18:06)
[2022-03-14] MEDS ORDERED: CIPROFLOXACIN 500 MG TAB PO SCH (21:00)
[2022-03-15] MEDS: HYDROCODONE/ACETAMOPHEN 5/325MG TAB PO PRN (00:07)
[2022-03-15] MEDS: ONDANSETRON INJ 2 MG/ML 2 ML VIAL IV PRN ×2 (00:07→11:58)
--- NOTE | 2022-03-15 00:14 | Communication Note ---
Date of Service: March 15, 2022 Received message from RN around midnight that patient was ordered ciprofloxacin BID for her UTI. However, patient reports anaphylactic allergy to ciprofloxacin. She has a levofloxacin allergy listed as well. As such, will switch back to cefepime for the time being, so alternate antibiotic regimens may be considered between attending and patient in the morning.
[2022-03-15] MEDS: CEFEPIME 2,000 MG in SYRINGE 0 ML IV SCH ×2 (01:35→14:18)
[2022-03-15 07:42] LABS: BUN Creatinine Ratio 8.8 (10-20); Calcium 7.3 mg/dl (8.5-10.1); Creatinine Clr Calc Pharmacy 64.4 ml/min; Est GFR (African American) 105.6 ml/min; Est GFR (Non-African American) 91.2 ml/min; Potassium 3.6 mmol/L (3.5-5.1)
[2022-03-15] MEDS: SUCRALFATE 1 GM/10 ML UDC PO SCH ×2 (08:02→14:18)
[2022-03-15] MEDS: ADVANCED PROBIOTIC 1250 MG CAPSULE PO SCH (08:03)
[2022-03-15] MEDS: MAGNESIUM OXIDE 400 MG TAB PO SCH (08:03)
[2022-03-15] MEDS: PANTOprazole 40 MG TAB PO SCH (08:03)
[2022-03-15] MEDS: TOPIRAMATE 100 MG TAB PO SCH (08:03)
[2022-03-15] MEDS: ESCITALOPRAM OXALATE 10 MG TAB PO SCH (08:03)
[2022-03-15] MEDS ORDERED: STAT IV STA (08:33)
[2022-03-15] MEDS ORDERED: CALCIUM GLUCONATE 10% 2,000 MG in DEXTROSE 5% 50 ML IV ONE (08:33)
--- NOTE | 2022-03-15 11:15 | Discharge Summary ---
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 In the ED the patient was found to be afebrile, hemodynamically stable, tachycardic in the low 100's, and stable on RA. Labs were remarkable for WBC WNL, stable Hgb and platelets, stable renal function, potassium of 3.4, otherwise electrolytes WNL, stable liver function, procal of 2.90, UA indicative of UTI. Chest xray was read as negative for acute findings. CT of the abd/pelvis WO contrast was obtained due to abdominal pain and reported diarrhea and showed "1. There is marked thickening of the small bowel concerning for enteritis. 2. The large bowel appears unremarkable. 3. Nonobstructive nephrolithiasis is seen.". Prior to admission the patient was given a total of 3L NSS, cefepime, fentanyl, 10 mg toradol, 20 mg famotidine, and 1 mg IV ativan. At the time of the exam the patient was resting comfortably in bed in no acute distress with her sister sitting bedside, history was obtained from both. They state that the patient recently completed 21 sessions of radiation and chemotherapy in [place], he last dose of both was on 03/03/22. She and her sister are usure of what chemotherapy she received but the ED staff has requested records from her other hospital. They state that since her last discharge on 03/03 the patient has experienced multiple daily episodes of diarrhea with poor oral intake. She states that she developed generalized abdominal pain yesterday. She rates it as an 8/10, cramping pain, which radiates to her back at times. She notes multiple episodes of non-bloody diarrhea daily despite her poor oral intake. She denies recent fevers, chills, chest pain, SOB, vomiting, and recent falls. Her sister notes that the patient has been weak on her legs recently with her poor oral intake. The patient has lost approximately 30 pounds since her diagnosis and treatment of her anal cancer. She also also noted increased BL LE edema since starting her treatment. I spoke to the patient regarding code status , she is a DNR/DNI. Her sister would make decisions for her if she could not make them herself. Island refer to Dr. Oliveira's attestation for any changes to the treatment plan Principal Diagnosis Uncomplicated Pseudomonas UTI, hypokalemia, depression disorder Discharge Exam General-alert and oriented x3, no fevers, no chills HEENT-head atraumatic and normocephalic, pupils equal and reactive to light, extraocular muscles intact Neck-no lymphadenopathy or thyromegaly, trachea midline Chest-clear to auscultation percussion. No rales wheezing or rhonchi Cardiac-regular rate and rhythm, normal S1 and S2, no murmurs Abdomen-normal bowel sounds, nontender, no hepatosplenomegaly Extremities-no cyanosis, clubbing, or edema Neuro-cranial nerves II through XII intact, motor and sensory function within normal limits, strength symmetrical , no focal deficits Psych-normal affect, normal mood Discharge Data Allergies Allergy/AdvReac Type Severity Reaction Status Date / Time acetaminophen [From Percocet] Allergy Mild Dizziness Verified 03/12/22 12:52 oxycodone [From Percocet] Allergy Mild Dizziness Verified 03/12/22 12:52 ciprofloxacin [From Cipro] Allergy Unknown Unknown Verified 03/14/22 20:25 levofloxacin Allergy Unknown Unknown Verified 03/14/22 20:25 metronidazole Allergy Unknown Unknown Verified 03/14/22 20:26 morphine Allergy Unknown Drowsy Verified 03/14/22 20:25 moxifloxacin Allergy Unknown Unknown Verified 03/14/22 20:25 Penicillins Allergy Unknown Unknown Verified 03/14/22 20:25 Sulfa (Sulfonamide Allergy Unknown Unknown Verified 03/14/22 20:25 Antibiotics) Consultations 03/12/22 15:02 ED Decision to Admit Stat Ordered Studies 03/12/22 11:20 CT abd pelvis wo con Stat Hospital Course (1) UTI (urinary tract infection): - Pseudomonas UTIcefepime day 2. Home on cefdinir. Bladder spasms resolved. -Urine and blood cultures pending final (2) Depression: Is single, no children and lives with 3 cats. Has a supportive twin sister in the same town. Wants to go back to work in the [employer]. Admits to crying spells. TSH and B12 normal Started Lexapro 10 mg this admission (3) Malignant neoplasm of anal canal: -Patient is S/P 21 rounds of radiation and chemo, last doses of both were on 03/03 -She received her care at [facility] In [place] per admitting provider. (4) Hypokalemia: Hypokalemia has been corrected. Parenteral calcium replacement again today prior to discharge (5) Protein calorie malnutrition: Prealbumin only 6. Dietitian for boost supplements. Patient is not aware of this diagnosis she is lost appetite and is eating only 20% or so for meals. Keeps saying she wants pizza and hobbies. 35 pound weight loss in the last few months. (6) Migraines: Continue topiramate and prn sumatriptan Plan Stable for discharge home todayMarch 15 Total Time Total Time Spent Total Time Spent (In Minutes): 35 minutes Discharge Plan Discharge Items Patient Disposition: Home - Self-Care Reason For Visit: ABDOMINAL PAIN Discharge Diagnosis: Pseudomonas UTI, depression disorder, hypokalemia Activity: Resume your previous activity Non-emergency contact: Primary Care Provider Call non-emergency contact if: you have any medication questions Follow-up/Referrals: Roberto Carlos Estrada MD [Primary Care Provider] - Diet: Regular Addtl Attending Provider Instructions: Take cefdinir antibiotic for 2 more days for the urinary tract infection. Lexapro is new for depression Pending Studies at Discharge: No Stand-Alone Forms: My [employer], Smoking Cessation Medications and DC Order Prescriptions: New cefdinir 300 mg capsule 300 mg PO BID Qty: 6 0RF escitalopram oxalate 10 mg Tablet 5 mg PO QAM Qty: 20 0RF Continued cyclobenzaprine 10 mg tablet 10 mg PO TID PRN (Reason: Muscle Spasm) ibuprofen [Motrin IB] 200 mg capsule 200 mg PO Q6H PRN (Reason: Pain) Lactobacillus acidophilus 10 billion cell capsule 5,000 mmu cells PO DAILY magnesium 250 mg tablet 500 mg PO BID sumatriptan succinate [Imitrex] 100 mg tablet 100 mg PO Q2H PRN (Reason: Migraine Headache) Rx Instructions: do not exceed 2 doses per 24 hrs topiramate [Topamax] 100 mg tablet 100 mg PO BID acetaminophen [Tylenol Extra Strength] 500 mg tablet 500 mg PO QID PRN (Reason: Pain) Excedrin Migraine 250-250-65 mg tablet 1 tab PO Q6H PRN (Reason: Headache) ranitidine HCl 150 mg tablet 150 mg PO DAILY PRN (Reason: Acid Reflux) docusate sodium [Colace] 100 mg capsule 100 mg PO BID hydrocodone-acetaminophen 5-325 mg tablet 1 tab PO Q6H PRN (Reason: Pain) diazepam 2 mg tablet 2 mg PO Q6H PRN (Reason: Muscle Spasm) Aleve Cold and Sinus 220-120 mg Tablet Extended Release 12 Hr 1 tab PO BID PRN (Reason: Flu Symptoms) Discharge Orders: Discharge Order (Routine); Ordered 03/15/22 Ordered By: Esteban Quiles Admission Data Admit Date/Time: 03/12/22 15:27 Attending Provider: Esteban Quiles Admit Provider: Pee Hartley Primary Care Provider: Roberto Carlos Estrada Other Providers: Pee Hartley Coding Level of Care Code D/C DAY MANAGEMENT >30 MINS Diagnoses UTI (urinary tract infection) N39.0 Depression F32.A Malignant neoplasm of anal canal C21.1 Hypokalemia E87.6 Protein calorie malnutrition E46 Migraines G43.909
--- NOTE | 2022-03-19 15:43 | Emergency Department Note ---
Impression & Plan Enteritis, UTI (urinary tract infection), Dehydration, Malignant neoplasm of anus ED Provider Note CHIEF COMPLAINT: abd pain, back pain HISTORY OF PRESENT ILLNESS: This 66 yo female patient presents to the emergency department with c/o abd pain on L side with pain through to the back. Pt has rectal cancer and finished radiation tx 2 wks ago. She was recently admitted to [facility] and advised that she had a kidney stone in the left ureter that would need to be addressed by urology. Patient apparently called today and was told [facility] physician group providers except her insurance. She states she is dehydrated, and in severe pain. Patient denies any difficulty with urination except she states she has not urinated much today. She has not been eating and states she is lost 30 lbs. REVIEW OF SYSTEMS: A review of systems was performed with positives and per tinent negatives listed in the history of present illness. 10 systems were reviewed and are otherwise negative. ALLERGIES: see below MEDICATIONS: see below PMH: see below SOCIAL HISTORY: see below DDx: Kidney stone, appendicitis, diverticulitis, UTI, obstruction, mesenteric ischemia, aortic pathology, inflammatory bowel disease, renal colic, PUD, pancreatitis, biliary pathology, hernia, volvulus, constipation, as well as other pathologies. PHYSICAL EXAM: Vital signs reviewed. General: Well-appearing 66-year-old female, in no significant distress. HEENT: No scleral icterus, PERRLA, neck supple. MMM. Cardiovascular: Regular rate and rhythm, no extra sounds. Pulmonary: Clear to auscultation bilaterally, normal work of breathing. Abdomen: Soft, nontender, nondistended, positive bowel sounds. Musculoskeletal: Atraumatic, no peripheral edema. Neurologic: Patient awake alert and oriented x 3 Skin: Warm, dry, no rash EMERGENCY DEPARTMENT COURSE/MDM: Patient was evaluated and appeared to be in no significant distress. IV access was obtained and laboratory work was drawn. Avi dawkins was hydrated with normal saline solution, given 10 mg of IV Toradol, 20 mg of IV Pepcid and hydrated with normal saline solution. Patient continued to complain of pain and was given IV fentanyl and IV Zofran with better control. CT imaging of the abdomen pelvis was performed and reveals no evidence of obstructing ureteral stone. UA is positive for infection. Due to the patient's hypotension, the patient was covered with IV cefepime. Blood cultures are pending. Patient's case was discussed with the hospitalist service who will evaluate the patient for admission and further management. Patient and sister are aware of the plan and agreed. MONITORING: An order for cardiac monitoring was placed and the patient is noted to be in a sinus tachycardia at 104 beats per minute. RADIOLOGY: See below EKG:NSR at 96 bpm, R atrial enlargement, QTc 497. no PVC, no PAC. 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 Sister No problems noted. Sister Hypertension Son No problems noted. Social History (Updated 12/23/21 @ 08:32 by Eli To, RN) Smoking Status: Current every day smoker Tobacco Type: Cigarettes Cigarettes Per Day: 0.5 packs; Second Hand Exposure: Yes; Hx Alcohol Use: Yes Hx Substance Use: No Preferred Language: Ecuadorean Communication Ability: Effective Visual Impairment: No Limitations Hearing Ability: Normal Strawhat Sizer Required: No Beliefs That Will Affect Care: None marital status: Current Living Situation: Alone current occupational status: retired current occupation: RN How many Children do You have: 1 Feels Safe at Home: Yes Childhood Exposure to Second-Hand Smoke: No caffeine: Yes (6 cups/day) during the past year weight has: decreased > 10 lbs Assistive Devices: Glasses Allergies Allergies Allergy/AdvReac Type Severity Reaction Status Date / Time acetaminophen [From Percocet] Allergy Mild Dizziness Verified 03/12/22 12:52 oxycodone [From Percocet] Allergy Mild Dizziness Verified 03/12/22 12:52 ciprofloxacin [From Cipro] Allergy Unknown Unknown Verified 03/14/22 20:25 levofloxacin Allergy Unknown Unknown Verified 03/14/22 20:25 metronidazole Allergy Unknown Unknown Verified 03/14/22 20:26 morphine Allergy Unknown Drowsy Verified 03/14/22 20:25 moxifloxacin Allergy Unknown Unknown Verified 03/14/22 20:25 Penicillins Allergy Unknown Unknown Verified 03/14/22 20:25 Sulfa (Sulfonamide Allergy Unknown Unknown Verified 03/14/22 20:25 Antibiotics) Home Meds Home Medications Medication Instructions Recorded Confirmed Lactobacillus acidophilus 10 5,000 mmu cells PO DAILY 12/23/21 03/12/22 billion cell capsule acetaminophen 500 mg tablet 500 mg PO QID PRN Pain 12/23/21 03/12/22 (Tylenol Extra Strength) cppkgah-saiuywwteopyx-aysscjer 250 1 tab PO Q6H PRN Headache 12/23/21 03/12/22 mg-250 mg-65 mg tablet (Excedrin Migraine) cyclobenzaprine 10 mg tablet 10 mg PO TID PRN Muscle Spasm 12/23/21 03/12/22 docusate sodium 100 mg capsule 100 mg PO BID 12/23/21 03/12/22 (Colace) hydrocodone 5 mg-acetaminophen 325 1 tab PO Q6H PRN Pain 12/23/21 03/12/22 mg tablet ibuprofen 200 mg capsule (Motrin 200 mg PO Q6H PRN Pain 12/23/21 03/12/22 IB) magnesium 250 mg tablet 500 mg PO BID 12/23/21 03/12/22 ranitidine HCl 150 mg tablet 150 mg PO DAILY PRN Acid Reflux 12/23/21 03/12/22 sumatriptan succinate 100 mg 100 mg PO Q2H PRN Migraine Headache 12/23/21 03/12/22 tablet (Imitrex) topiramate 100 mg tablet (Topamax) 100 mg PO BID 12/23/21 03/12/22 diazepam 2 mg tablet 2 mg PO Q6H PRN Muscle Spasm 03/12/22 03/12/22 naproxen 220 mg-pseudoephedrine 1 tab PO BID PRN Flu Symptoms 03/12/22 03/12/22 120 mg ER tablet, extend release,12 hr (Aleve Cold and Sinus) Previous Rx's Medication Instructions Recorded cefdinir 300 mg capsule 300 mg PO BID #6 caps 03/15/22 escitalopram oxalate 10 mg tablet 5 mg PO QAM #20 tabs 03/15/22 Results & Data (ED) Home Medications Current Medication List: was personally reviewed by me Laboratory Data Attestation: I reviewed the patient's lab results. Result diagrams: 03/14/22 06:30 03/15/22 07:02 Lab Results 03/12/22 03/12/22 03/12/22 Range/Units 11:40 11:40 11:40 WBC 5.45 (4.8-10.8) K/ul RBC 3.78 L (3.93-5.22) M/uL Hgb 12.5 (12.0-16.0) g/dl Hct 36.9 (34.1-44.9) % MCV 97.6 (80.0-100.0) fL MCH 33.1 (25.0-34.0) pg MCHC 33.9 (32.0-36.0) g/dL RDW Std Deviation 57.8 H (36.4-46.3) fL RDW Coeff of Maru 16.1 H (11.5-14.5) % Plt Count 287 (130-400) K/uL MPV 8.9 L (9.4-12.3) fL Immature Gran % (Auto) 0.6 % Neut % (Auto) 87.2 % Lymph % (Auto) 2.8 % [place] % (Auto) 8.6 % Eos % (Auto) 0.2 % Baso % (Auto) 0.6 % Neut # (Auto) 4.76 (1.4-6.5) K/uL Lymph # (Auto) 0.15 L (1.2-3.4) K/uL [place] # (Auto) 0.47 (0.24-0.82) K/uL Eos # (Auto) 0.01 (0-0.50) K/uL Baso # (Auto) 0.03 (0-0.2) K/uL Immature Gran # (Auto) 0.03 H (0.00-0.02) K/uL Toxic Vacuolation 1+ Sodium 137 (136-145) mmol/L Potassium 3.4 L (3.5-5.1) mmol/L Chloride 102 (98-107) mmol/L Carbon Dioxide 25 (21-32) mmol/L Anion Gap 10 (3-11) BUN 24 H (6-23) mg/dl Creatinine 0.84 (0.6-1.2) mg/dl Est Cr Clr Drug Dosing 52.1 ml/min Est GFR ( Amer) 83.9 ml/min Est GFR (Non-Af Amer) 72.4 ml/min BUN/Creatinine Ratio 28.6 H (10-20) Glucose 115 H (70-99(Fasting)) mg/dl Lactate 1.0 (0.4-2.0) mmol/L Calcium 8.8 (8.5-10.1) mg/dl Magnesium 2.1 (1.7-2.4) mg/dl Total Bilirubin 0.3 (0.2-1.0) mg/dl Direct Bilirubin 0.1 (0-0.2) mg/dl AST 11 L (13-39) U/L ALT 11 (7-52) U/L Alkaline Phosphatase 72 (34-104) U/L Troponin I High Sens 6.8 (0-14) pg/ml Total Protein 6.2 (6.0-8.3) gm/dl Albumin 2.9 L (3.4-5.0) gm/dl Procalcitonin (0-0.5) ng/ml Urine Color Urine Appearance (Clear) Urine pH (4.5-7.5) Ur Specific [place] (1.000-1.030) Urine Protein (Negative) Urine Glucose (UA) (Negative) Urine Ketones (Negative) Urine Blood (Negative) Urine Nitrite (Negative) Urine Bilirubin (Negative) Urine Urobilinogen (Negative) Ur Leukocyte Esterase (Negative) Urine WBC (Auto) (0-5) /hpf Urine RBC (Auto) (0-4) /hpf U Hyaline Cast (Auto) (0-5) /lpf U Epithel Cells (Auto) (0-5) /lpf Urine Bacteria (Auto) (Negative) Urine Crystals Calcium Oxalate Crystal (None Prsent) 03/12/22 03/12/22 Range/Units 11:40 11:40 WBC (4.8-10.8) K/ul RBC (3.93-5.22) M/uL Hgb (12.0-16.0) g/dl Hct (34.1-44.9) % MCV (80.0-100.0) fL MCH (25.0-34.0) pg MCHC (32.0-36.0) g/dL RDW Std Deviation (36.4-46.3) fL RDW Coeff of Maru (11.5-14.5) % Plt Count (130-400) K/uL MPV (9.4-12.3) fL Immature Gran % (Auto) % Neut % (Auto) % Lymph % (Auto) % [place] % (Auto) % Eos % (Auto) % Baso % (Auto) % Neut # (Auto) (1.4-6.5) K/uL Lymph # (Auto) (1.2-3.4) K/uL [place] # (Auto) (0.24-0.82) K/uL Eos # (Auto) (0-0.50) K/uL Baso # (Auto) (0-0.2) K/uL Immature Gran # (Auto) (0.00-0.02) K/uL Toxic Vacuolation Sodium (136-145) mmol/L Potassium (3.5-5.1) mmol/L Chloride (98-107) mmol/L Carbon Dioxide (21-32) mmol/L Anion Gap (3-11) BUN (6-23) mg/dl Creatinine (0.6-1.2) mg/dl Est Cr Clr Drug Dosing ml/min Est GFR ( Amer) ml/min Est GFR (Non-Af Amer) ml/min BUN/Creatinine Ratio (10-20) Glucose (70-99(Fasting)) mg/dl Lactate (0.4-2.0) mmol/L Calcium (8.5-10.1) mg/dl Magnesium (1.7-2.4) mg/dl Total Bilirubin (0.2-1.0) mg/dl Direct Bilirubin (0-0.2) mg/dl AST (13-39) U/L ALT (7-52) U/L Alkaline Phosphatase (34-104) U/L Troponin I High Sens (0-14) pg/ml Total Protein (6.0-8.3) gm/dl Albumin (3.4-5.0) gm/dl Procalcitonin 2.90 H (0-0.5) ng/ml Urine Color Dark Yellow Urine Appearance Cloudy A (Clear) Urine pH 5.5 (4.5-7.5) Ur Specific [place] 1.019 (1.000-1.030) Urine Protein 1+ H (Negative) Urine Glucose (UA) Negative (Negative) Urine Ketones 1+ H (Negative) Urine Blood 3+ H (Negative) Urine Nitrite Positive A (Negative) Urine Bilirubin Negative (Negative) Urine Urobilinogen Negative (Negative) Ur Leukocyte Esterase 2+ H (Negative) Urine WBC (Auto) >30 H (0-5) /hpf Urine RBC (Auto) >30 H (0-4) /hpf U Hyaline Cast (Auto) 1-5 (0-5) /lpf U Epithel Cells (Auto) 5-10 H (0-5) /lpf Urine Bacteria (Auto) 1+ H (Negative) Urine Crystals Not Reportable Calcium Oxalate Crystal Present A (None Prsent) Administered Medications Discontinued Medications Hydrocodone Bitart/Acetaminophen (Hydrocodone/Acetamophen 5/325mg Tab) 1 tab PO Q6H PRN PRN Reason: Pain Stop: 03/26/22 17:54 Last Admin: 03/15/22 00:07 Dose: 1 tab Documented By: Admin: 03/14/22 18:04 Dose: 1 tab Documented By: Admin: 03/13/22 23:27 Dose: 1 tab Documented By: [id number] Admin: 03/13/22 12:04 Dose: 1 tab Documented By: EMILIANA Bisacodyl (Bisacodyl 5 Mg Tabec) 5 mg PO NOW ONE Stop: 03/14/22 12:08 Last Admin: 03/14/22 12:20 Dose: 5 mg Documented By: FAISAL Ciprofloxacin (Ciprofloxacin 500 Mg Tab) 500 mg PO BID HILARIA Stop: 03/19/22 20:59 Last Admin: 03/14/22 20:51 Dose: Not Given Documented By: LINDA Cyclobenzaprine HCl (Cyclobenzaprine Hcl 10 Mg Tab) 10 mg PO TID PRN PRN Reason: Muscle Spasm Stop: 04/11/22 17:54 Last Admin: 03/13/22 12:05 Dose: 10 mg Documented By: EMILIANA Diazepam (Diazepam 2 Mg Tablet) 2 mg PO Q6H PRN PRN Reason: Muscle Spasm Stop: 04/11/22 17:54 Last Admin: 03/12/22 22:21 Dose: 2 mg Documented By: GABRIELA Escitalopram Oxalate (Escitalopram Oxalate 10 Mg Tab) 5 mg PO QAM [facility] Stop: 04/13/22 08:59 Last Admin: 03/15/22 08:03 Dose: 5 mg Documented By: Admin: 03/14/22 07:59 Dose: 5 mg Documented By: FAISAL Fentanyl Citrate (Fentanyl Citrate 100 Mcg/2 Ml Vial) 25 mcg IV NOW ONE Stop: 03/12/22 12:02 Last Admin: 03/12/22 12:19 Dose: 25 mcg Documented By: JO ANN Sodium Chloride (Nss 1000ml) 500 mls @ 999 mls/hr IV .Q31M HILARIA Stop: 03/12/22 12:00 Last Infusion: 03/12/22 13:04 Dose: 0 mls/hr Documented By: JO ANN Admin: 03/12/22 11:56 Dose: 999 mls/hr Documented By: JO ANN Sodium Chloride (Nss 1000ml) 1,000 mls @ 999 mls/hr IV .Q1H1M [facility] Stop: 03/12/22 12:30 Last Infusion: 03/12/22 13:04 Dose: 0 mls/hr Documented By: JO ANN Admin: 03/12/22 11:54 Dose: 999 mls/hr Documented By: JO ANN Cefepime HCl (Maxipime) 2,000 mg in 20 mls @ 5 mls/min IV NOW STA; Protocol Stop: 03/12/22 11:22 Last Admin: 03/12/22 11:55 Dose: 5 mls/min Documented By: JO ANN Sodium Chloride (Nss 1000ml) 500 mls @ 999 mls/hr IV .Q31M HILARIA Stop: 03/12/22 15:00 Last Infusion: 03/12/22 19:31 Dose: 0 mls/hr Documented By: Admin: 03/12/22 14:32 Dose: 999 mls/hr Documented By: JO ANN Dextrose/Sodium Chloride (D5w And Nss) 1,000 mls @ 125 mls/hr IV .Q8H [facility] Stop: 04/11/22 14:59 Last Infusion: 03/12/22 20:42 Dose: 0 mls/hr Documented By: Admin: 03/12/22 15:40 Dose: 125 mls/hr Documented By: JO ANN Famotidine 20 mg/ Syringe 5 mls @ 2.5 mls/min IV NOW STA Stop: 03/12/22 15:00 Last Admin: 03/12/22 15:40 Dose: 2.5 mls/min Documented By: JO ANN Potassium Chloride (K Avery / Wtr) 10 meq in 100 mls @ 100 mls/hr IV Q1H HILARIA Stop: 03/12/22 18:29 Last Infusion: 03/12/22 19:31 Dose: 0 mls/hr Documented By: Admin: 03/12/22 17:48 Dose: 100 mls/hr Documented By: JO ANN Infusion: 03/12/22 17:46 Dose: 100 mls/hr Documented By: JO ANN Admin: 03/12/22 16:46 Dose: 100 mls/hr Documented By: JO ANN Infusion: 03/12/22 16:40 Dose: 100 mls/hr Documented By: JO ANN Admin: 03/12/22 15:40 Dose: 100 mls/hr Documented By: JO ANN Metronidazole 50 mg/ Syringe 10 mls @ 20 mls/hr IV NOW STA Stop: 03/12/22 16:28 Last Infusion: 03/12/22 18:10 Dose: 0 mls/hr Documented By: Admin: 03/12/22 17:37 Dose: 20 mls/hr Documented By: JO ANN Lactated Ringer's (Lr) 1,000 mls @ 125 mls/hr IV .Q8H HILARIA Stop: 03/13/22 17:14 Last Infusion: 03/13/22 17:21 Dose: 0 mls/hr Documented By: Admin: 03/13/22 15:26 Dose: 80 mls/hr Documented By: Infusion: 03/13/22 15:26 Dose: 80 mls/hr Documented By: Admin: 03/13/22 03:41 Dose: 80 mls/hr Documented By: Infusion: 03/13/22 03:41 Dose: 80 mls/hr Documented By: Infusion: 03/12/22 20:35 Dose: 80 mls/hr Documented By: Admin: 03/12/22 16:43 Dose: 80 mls/hr Documented By: JO ANN Ceftriaxone Sodium 2,000 mg/ (Dextrose) 70 mls @ 100 mls/hr IV Q24H HILARIA; Protocol Stop: 03/17/22 16:29 Last Infusion: 03/12/22 19:00 Dose: 0 mls/hr Documented By: Admin: 03/12/22 18:08 Dose: 100 mls/hr Documented By: JO ANN Pantoprazole Sodium 40 mg/ (Syringe) 10 mls @ 5 mls/min IV BID HILARIA Stop: 04/11/22 20:59 Last Admin: 03/13/22 07:34 Dose: 5 mls/min Documented By: Admin: 03/12/22 20:43 Dose: 5 mls/min Documented By: GABRIELA Metronidazole (Flagyl) 500 mg in 100 mls @ 100 mls/hr IV Q8H HILARIA Stop: 03/22/22 20:14 Last Infusion: 03/13/22 13:51 Dose: 0 mls/hr Documented By: Admin: 03/13/22 12:05 Dose: 100 mls/hr Documented By: Infusion: 03/13/22 04:48 Dose: 0 mls/hr Documented By: Admin: 03/13/22 03:41 Dose: 100 mls/hr Documented By: Infusion: 03/12/22 21:54 Dose: 0 mls/hr Documented By: Admin: 03/12/22 20:41 Dose: 100 mls/hr Documented By: GABRIELA Cefepime HCl 1,000 mg/ Syringe 10 mls @ 5 mls/min IV Q12 HILARIA; Protocol Stop: 03/23/22 08:59 Last Admin: 03/13/22 09:10 Dose: 5 mls/min Documented By: EMILIANA Cefepime HCl 2,000 mg/ Syringe 20 mls @ 5 mls/min IV Q12 HILARIA Stop: 03/23/22 08:59 Last Admin: 03/14/22 08:00 Dose: 5 mls/min Documented By: Admin: 03/13/22 20:17 Dose: 5 mls/min Documented By: EMILIANA Lactated Ringer's (Lr) 1,000 mls @ 125 mls/hr IV .Q8H HILARIA Stop: 03/14/22 09:29 Last Infusion: 03/14/22 08:05 Dose: 0 mls/hr Documented By: Admin: 03/14/22 00:14 Dose: 125 mls/hr Documented By: Elizabeth Infusion: 03/14/22 00:14 Dose: 125 mls/hr Documented By: [id number] Admin: 03/13/22 17:40 Dose: 125 mls/hr Documented By: EMILIANA Lactated Ringer's (Lr) 1,000 mls @ 100 mls/hr IV .Q10H HILARIA Stop: 04/13/22 09:44 Last Infusion: 03/14/22 17:46 Dose: 0 mls/hr Documented By: Admin: 03/14/22 09:45 Dose: 100 mls/hr Documented By: FAISAL Potassium Chloride (K [place] / Wtr) 10 meq in 100 mls @ 100 mls/hr IV Q1H HILARIA Stop: 03/14/22 13:44 Last Infusion: 03/14/22 13:57 Dose: 0 mls/hr Documented By: Admin: 03/14/22 12:57 Dose: 100 mls/hr Documented By: Infusion: 03/14/22 12:56 Dose: 100 mls/hr Documented By: Admin: 03/14/22 11:56 Dose: 100 mls/hr Documented By: Infusion: 03/14/22 11:51 Dose: 100 mls/hr Documented By: Admin: 03/14/22 10:51 Dose: 100 mls/hr Documented By: FAISAL Cefepime HCl 2,000 mg/ Syringe 20 mls @ 5 mls/min IV Q12H HILARIA; Protocol Stop: 03/20/22 01:59 Last Admin: 03/15/22 14:18 Dose: Not Given Documented By: Admin: 03/15/22 01:35 Dose: 5 mls/min Documented By: LINDA Calcium Gluconate 2,000 mg/ (Dextrose) 70 mls @ 240 mls/hr IV NOW ONE Stop: 03/15/22 08:50 Last Infusion: 03/15/22 09:59 Dose: 0 mls/hr Documented By: Admin: 03/15/22 09:40 Dose: 240 mls/hr Documented By: ELIZABETH Ibuprofen (Ibuprofen 600 Mg Tab) 600 mg PO NOW STA Stop: 03/13/22 02:54 Last Admin: 03/13/22 03:02 Dose: 600 mg Documented By: Ketorolac Tromethamine (Ketorolac Tromethamine 15 Mg/Ml Vial) 10 mg IV NOW ONE Stop: 03/12/22 14:59 Last Admin: 03/12/22 15:31 Dose: 10 mg Documented By: JO ANN Lactobacillus Acidophilus (Advanced Probiotic 1250 Mg Capsule) 1 cap PO DAILY HILARIA Stop: 04/12/22 08:59 Last Admin: 03/15/22 08:03 Dose: 1 cap Documented By: Admin: 03/14/22 08:00 Dose: 1 cap Documented By: Admin: 03/13/22 07:34 Dose: 1 cap Documented By: EMILIANA Loperamide HCl (Loperamide Hcl 2 Mg Cap) 2 mg PO NOW STA Stop: 03/13/22 23:28 Last Admin: 03/13/22 23:39 Dose: 2 mg Documented By: [id number] Lorazepam (Lorazepam 1 Mg/1 Ml Syr) 1 mg IV NOW STA; Protocol Stop: 03/12/22 14:58 Last Admin: 03/12/22 15:30 Dose: 1 mg Documented By: JO ANN Magnesium Oxide (Magnesium Oxide 400 Mg Tab) 400 mg PO BID [facility] Stop: 04/11/22 20:59 Last Admin: 03/15/22 08:03 Dose: 400 mg Documented By: Admin: 03/14/22 20:27 Dose: 400 mg Documented By: Admin: 03/14/22 08:00 Dose: Not Given Documented By: Admin: 03/13/22 20:17 Dose: 400 mg Documented By: Admin: 03/13/22 07:34 Dose: 400 mg Documented By: Admin: 03/12/22 20:43 Dose: 400 mg Documented By: GABRIELA Ondansetron HCl (Ondansetron Inj 2 Mg/Ml 2 Ml Vial) 4 mg IV NOW STA Stop: 03/12/22 12:02 Last Admin: 03/12/22 12:19 Dose: 4 mg Documented By: JO ANN Ondansetron HCl (Ondansetron Inj 2 Mg/Ml 2 Ml Vial) 4 mg IV NOW STA Stop: 03/14/22 09:15 Last Admin: 03/14/22 09:20 Dose: 4 mg Documented By: FAISAL Ondansetron HCl (Ondansetron Inj 2 Mg/Ml 2 Ml Vial) 4 mg IV Q6H PRN PRN Reason: Nausea And Vomiting Stop: 04/13/22 09:14 Last Admin: 03/15/22 11:58 Dose: 4 mg Documented By: Admin: 03/15/22 00:07 Dose: 4 mg Documented By: Admin: 03/14/22 18:06 Dose: 4 mg Documented By: FAISAL Ondansetron HCl (Ondansetron Inj 2 Mg/Ml 2 Ml Vial) Confirm Administered Dose 4 mg .ROUTE .STK-MED ONE Stop: 03/14/22 09:20 Last Admin: 03/14/22 09:21 Dose: Not Given Documented By: FAISAL Pantoprazole Sodium (Pantoprazole 40 Mg Tab) 40 mg PO QAM [facility] Stop: 04/13/22 08:59 Last Admin: 03/15/22 08:03 Dose: 40 mg Documented By: Admin: 03/14/22 08:00 Dose: 40 mg Documented By: FAISAL Sucralfate (Sucralfate 1 Gm/10 Ml Udc) 1 gm PO TID [facility] Stop: 04/13/22 13:59 Last Admin: 03/15/22 14:18 Dose: Not Given Documented By: Admin: 03/15/22 08:02 Dose: 1 gm Documented By: Admin: 03/14/22 20:27 Dose: 1 gm Documented By: Admin: 03/14/22 13:51 Dose: 1 gm Documented By: FAISAL Topiramate (Topiramate 100 Mg Tab) 100 mg PO BID [facility] Stop: 04/11/22 20:59 Last Admin: 03/15/22 08:03 Dose: 100 mg Documented By: Admin: 03/14/22 20:29 Dose: 100 mg Documented By: Admin: 03/14/22 08:00 Dose: 100 mg Documented By: Admin: 03/13/22 20:18 Dose: 100 mg Documented By: Admin: 03/13/22 07:34 Dose: 100 mg Documented By: Admin: 03/12/22 20:43 Dose: 100 mg Documented By: Imaging Data Radiologist's Impression: Chest X-Ray 03/12/22 11:19 XR chest 1V portable CLINICAL HISTORY: Sepsis TECHNIQUE: Single frontal radiograph of the chest was obtained. Comparison: None available at the time of this dictation. FINDINGS: No lines and tubes are seen. The cardiomediastinal silhouette is normal. The lungs are clear. No evidence of pleural effusion or pneumothorax. IMPRESSION: No acute abnormalities and in particular no evidence of pneumonia. ACT 112: Negative or not required by law. Electronically signed by: Chucky Cordova M.D. 03/12/2022 12:07 PM Abdomen/Pelvis CT 03/12/22 11:20 CT abd pelvis wo con CLINICAL HISTORY: renal stone, sepsis TECHNIQUE: Helical axial images of the abdomen and pelvis were obtained. Automated dose lowering techniques and/or adjustment according to patient size were utilized for this exam. This exam was performed without intravenous contrast. CT DOSE: 235.19 mGy.cm COMPARISON: Comparison is made to CT abdomen pelvis 12/14/2021 FINDINGS: Lower chest: Bronchiectasis, bronchial wall thickening, mucus plugging is seen in the left lower lobe. Liver: Unremarkable. No focal lesions are seen. Gallbladder and biliary tree: No calcified gallstones. Normal caliber wall. No intra- or extrahepatic biliary ductal dilation. Pancreas: Unremarkable, no focal lesions. Spleen: Unremarkable. Adrenals: Unremarkable. Kidneys and ureters: Nonobstructive nephrolithiasis is seen. There is an 11 mm cyst in the left kidney inferior pole. Bladder: Whaley catheter is seen. Reproductive organs: Unremarkable. Bowel: The colon is unremarkable. There is diffuse small bowel wall thickening with mild distention, measuring up to 33 mm, without a firm transition point. Evaluation is limited due to the paucity of intra-abdominal fat. Lymph nodes Retroperitoneal: Unremarkable. Pelvic: Unremarkable. Mesenteric: Unremarkable. Peritoneum: Small amount of peritoneal fluid is seen most prominently surrounding the thickened loops of small bowel. Vessels: Atherosclerotic calcifications are seen. Abdominal wall: Unremarkable. Bones: Degenerative changes in the visualized spine. IMPRESSION: 1. There is marked thickening of the small bowel concerning for enteritis. 2. The large bowel appears unremarkable. 3. Nonobstructive nephrolithiasis is seen. ACT 112: Negative or not required by law. Electronically signed by: Chucky Cordova M.D. 03/12/2022 1:32 PM Blood Pressure Blood Pressure Findings: Low blood pressure Blood Pressure Disposition: further management by hospitalist Discharge Plan Visit Data Chief Complaint: Abdominal Pain Stated Complaint: ABDOMINAL PAIN, BACK PAIN ED Provider: Flavia Blair Discharge Problem: Enteritis, UTI (urinary tract infection), Dehydration, Malignant neoplasm of anus Patient Disposition: Admitted As Inpatient Discharge Instructions Interventions: ED Discharge Assessment Last Done: 03/12/22 20:14
== END 2022-03-15 14:57 | disposition home or self-care (01) ==
LOC: ED 10:55 → EDINP 15:27 → INTOOBSV 15:27 → SUATTDRO 15:27 → 2N 20:14
DX: E46 Unspecified protein-calorie malnutrition; K52.9 Noninfective gastroenteritis and colitis, unspecified; Z88.1 Allergy status to other antibiotic agents; F32.A Depression, unspecified; E87.6 Hypokalemia; Z88.2 Allergy status to sulfonamides; Z88.0 Allergy status to penicillin; N39.0 Urinary tract infection, site not specified; Z88.5 Allergy status to narcotic agent; E86.0 Dehydration; F17.210 Nicotine dependence, cigarettes, uncomplicated; C21.0 Malignant neoplasm of anus, unspecified; G43.909 Migraine, unspecified, not intractable, without status migrainosus; B96.5 Pseudomonas (aeruginosa) (mallei) (pseudomallei) as the cause of diseases classified elsewhere

== ENCOUNTER 2022-03-21 12:20 | Observation (INO) ==
[2022-03-21 14:10] LABS: Basophils # (auto) 0.02 K/uL (0-0.2); Basophils % (auto) 0.3 %; Eosinophils # (auto) 0.02 K/uL (0-0.50); Eosinophils % (auto) 0.3 %; Hematocrit (blood only) 35.5 % (34.1-44.9); Hemoglobin 11.6 g/dl (12.0-16.0); Immature Granulocytes # (auto) 0.03 K/uL (0.00-0.02); Immature Granulocytes % (auto) 0.5 %; Lymphocytes # (auto) 0.47 K/uL (1.2-3.4); Lymphocytes % (auto) 7.9 %; Mean Corpuscular Hemoglobin 33.3 pg (25.0-34.0); Mean Corpuscular Hgb Conc 32.7 g/dL (32.0-36.0); Mean Platelet Volume 9.4 fL (9.4-12.3); Monocytes # (auto) 0.48 K/uL (0.24-0.82); Neutrophils # (auto) 4.96 K/uL (1.4-6.5); Platelet Count 285 K/uL (130-400); RDW Coefficient of Variation 18.2 % (11.5-14.5); RDW Standard Deviation 67.2 fL (36.4-46.3); Red Blood Count 3.48 M/uL (3.93-5.22); White Blood Count 5.98 K/ul (4.8-10.8)
[2022-03-21 14:46] LABS: Albumin Level 2.9 gm/dl (3.4-5.0); BUN Creatinine Ratio 13.8 (10-20); Bilirubin,Total 0.3 mg/dl (0.2-1.0); Calcium 8.4 mg/dl (8.5-10.1); Creatinine Clr Calc Pharmacy 50.3 ml/min; Est GFR (African American) 80.5 ml/min; Est GFR (Non-African American) 69.4 ml/min; Globulin 2.8 gm/dl (2.5-4.0); Potassium 3.5 mmol/L (3.5-5.1); Total Protein 5.7 gm/dl (6.0-8.3)
--- NOTE | 2022-03-21 17:15 | CT Scan Report ---
CT abd pelvis wo con CLINICAL HISTORY: poss urinary obstruc TECHNIQUE: Helical axial images of the abdomen and pelvis were obtained. Automated dose lowering tech niques and/or adjustment according to patient size were utilized for this exam. This exam was perfor med without intravenous contrast. CT DOSE: 237.99 mGy.cm COMPARISON: Comparison is made to CT abdomen pelvis 03/12/2022 FINDINGS: Lower chest: No acute abnormality. Liver: Unremarkable. No focal lesions are seen. Gallbladder and biliary tree: The gallbladder is contracted. No intra- or extrahepatic biliary ductal dilation. Pancreas: Unremarkable, no focal lesions. Spleen: Unremarkable. Adrenals: Unremarkable. Kidneys and ureters: Nonobstructive nephrolithiasis is seen. Small cysts are seen bilaterally. Bladder: Limited evaluation due to underdistention. Reproductive organs: Unremarkable. Bowel: Unremarkable. Lymph nodes Retroperitoneal: Unremarkable. Pelvic: Unremarkable. Mesenteric: Unremarkable. Peritoneum: Normal. Vessels: Atherosclerotic calcifications are seen. Numerous phleboliths are seen. Abdominal wall: Unremarkable. Bones: Degenerative changes in the visualized spine. IMPRESSION: 1. No acute abnormalities and in particular no evidence of urinary obstruction. Nonobstructive stone s and renal cysts are seen. 2. The gallbladder is again noted to be contracted. ACT 112: Negative or not required by law. Electronically signed by: Chucky Cordova M.D. 03/21/2022 5:13 PM
[2022-03-21] MEDS ORDERED: FUROSEMIDE 40 MG/4 ML VIAL IV STA (19:27)
[2022-03-21] MEDS ORDERED: POTASSIUM CHLORIDE CRTAB 20 MEQ TABCR PO STA (19:27)
--- NOTE | 2022-03-21 19:27 | Emergency Department Note ---
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 Denies any chest pain or shortness of breath. Has some epigastric abdominal pain. No nausea or vomiting. No dysuria, urgency, or frequency. No other exacerbating or remitting factors. No history of heart failure. ROS: See above HPI for pertinent positives & negatives. A total of 10 systems reviewed and were otherwise negative. PAST MEDICAL HISTORY:See Below PAST SURGICAL HISTORY:See Below FAMILY HISTORY:See Below SOCIAL HISTORY:See Below HOME MEDICATIONS:See Below ALLERGIES:See Below VITALS:See Below PHYSICAL EXAMINATION: GENERAL: Sitting up in bed, alert, well appearing, well nourished, no distress, non-toxic EYE EXAM: normal conjunctiva. PERRL and EOM's grossly intact. OROPHARYNX: no exudate, no erythema, lips, buccal mucosa, and tongue normal and mucous membranes are moist NECK: supple, no nuchal rigidity, no adenopathy, non-tender LUNGS: Clear to auscultation. Normal chest wall mechanics HEART: no murmurs, S1 normal and S2 normal ABDOMEN: abdomen soft, non-tender, normo-active bowel sounds, no masses, no rebound or guarding. UPPER EXTREMITIES: upper extremities are grossly normal. LOWER EXTREMITIES: Pitting edema to bilateral lower extremities tracking up to the hips NEURO EXAM: Normal sensorium, cranial nerves II-XII grossly intact, normal speech, no gross weakness of arms, no gross weakness of legs. MEDICAL DECISION MAKING: Patient is a 66-year-old female who presents the ER for swelling in the legs associated with weakness. IV was established blood work was obtained. Labs show no significant leukocytosis. Mild anemia 11.6. BMP along with LFTs b ilirubin and lipase is unremarkable. proBNP was 103. UA with nitrites leuks whites although slightly contaminated. COVID was negative. CT abdomen pelvis was performed and showed no acute pathology. She was given IV Lasix due to the extensive pitting edema. Chest x-ray and EKG were fairly unremarkable. Due to extensive wait labs and blood work were drawn in the waiting room. Patient was updated at bedside. As this is new onset and with the chemo question if she may have a cardiomyopathy. Discussed with Patrick Owusu for further evaluation. Triage Nursing notes reviewed. Limited review of prior medical records performed Vital Signs: reviewed and remarkable for tachy Differential diagnosis: Infection, dehydration, metabolic abnormality, hypo/hyperglycemia, electrolyte disturbance, anemia, hypoxia, cardiac sources, intracerebral event, toxicologic, neurologic, as well as other pathologies. ER treatment provided: See below Diagnostics interpreted by me: ECG: Sinus rhythm rate 82 Normal axis No PVCs QTC 418 Cardiac Monitoring: An order was placed for continuous cardiac monitoring. The monitor shows a rate of 80 with sinus rhythm. Laboratory studies: As stated above and show below. Imaging studies: Portable AP upright [address] abdomen pelvis showed no acute pathology Consultation(s): Discussed with Patrick Owusu for further evaluation Procedures: none Critical Care: None Past Med/Surg History Medical History Kidney stones Malignant neoplasm of anus 11/18/21 Melanoma Removed from left scapula area Migraines Right trigger finger Had surgery for this Surgical History H/O right breast biopsy 4 yrs ago - benign History of hysterectomy Complete History of surgery 11/18/21 Anal/rectal exam under anesthesia Family History Mother , 48yo Breast cancer Father , 52yo Multiple myeloma Myocardial infarction Brother No problems noted. Sister No problems noted. Sister Hypertension Son No problems noted. Social History Smoking Status: Current every day smoker Tobacco Type: Cigarettes Cigarettes Per Day: 0.5 packs; Second Hand Exposure: Yes; Hx Alcohol Use: Yes Hx Substance Use: No Preferred Language: Qatari Communication Ability: Effective Visual Impairment: No Limitations Hearing Ability: Normal Flat Surfacer Required: No Beliefs That Will Affect Care: None marital status: Current Living Situation: Alone current occupational status: retired current occupation: RN How many Children do You have: 1 Feels Safe at Home: Yes Childhood Exposure to Second-Hand Smoke: No caffeine: Yes (6 cups/day) during the past year weight has: decreased > 10 lbs Assistive Devices: Glasses Allergies Allergies Allergy/AdvReac Type Severity Reaction Status Date / Time oxycodone [From Percocet] Allergy Mild Dizziness Verified 03/21/22 19:29 ciprofloxacin [From Cipro] Allergy Unknown Unknown Verified 03/21/22 19:29 levofloxacin Allergy Unknown Unknown Verified 03/21/22 19:29 metronidazole Allergy Unknown Unknown Verified 03/21/22 19:29 morphine Allergy Unknown Drowsy Verified 03/21/22 19:29 moxifloxacin Allergy Unknown Unknown Verified 03/21/22 19:29 Penicillins Allergy Unknown Unknown Verified 03/21/22 19:29 Sulfa (Sulfonamide Allergy Unknown Unknown Verified 03/21/22 19:29 Antibiotics) Home Meds Home Medications Medication Instructions Recorded Confirmed Lactobacillus acidophilus 10 5,000 mmu cells PO DAILY 12/23/21 03/21/22 billion cell capsule acetaminophen 500 mg tablet 500 mg PO QID PRN Pain 12/23/21 03/21/22 (Tylenol Extra Strength) zznaiqx-enkzszuauxusx-rzfornct 250 1 tab PO Q6H PRN Headache 12/23/21 03/21/22 mg-250 mg-65 mg tablet (Excedrin Migraine) cyclobenzaprine 10 mg tablet 10 mg PO TID PRN Muscle Spasm 12/23/21 03/21/22 docusate sodium 100 mg capsule 100 mg PO BID 12/23/21 03/21/22 (Colace) hydrocodone 5 mg-acetaminophen 325 1 tab PO Q6H PRN Pain 12/23/21 03/21/22 mg tablet ibuprofen 200 mg capsule (Motrin 200 mg PO Q6H PRN Pain 12/23/21 03/21/22 IB) magnesium 250 mg tablet 500 mg PO BID 12/23/21 03/21/22 ranitidine HCl 150 mg tablet 150 mg PO DAILY PRN Acid Reflux 12/23/21 03/21/22 sumatriptan succinate 100 mg 100 mg PO Q2H PRN Migraine Headache 12/23/21 03/21/22 tablet (Imitrex) topiramate 100 mg tablet (Topamax) 100 mg PO BID 12/23/21 03/21/22 diazepam 2 mg tablet 2 mg PO Q6H PRN Muscle Spasm 03/12/22 03/21/22 naproxen 220 mg-pseudoephedrine 1 tab PO BID PRN Flu Symptoms 03/12/22 03/21/22 120 mg ER tablet, extend release,12 hr (Aleve Cold and Sinus) Previous Rx's Medication Instructions Recorded escitalopram oxalate 10 mg tablet 5 mg PO QAM #20 tabs 03/15/22 Results & Data (ED) Vital Signs Vital Signs - 24 hr 03/21/22 12:34 03/21/22 19:33 03/21/22 19:10 Temperature 37.0 C Temperature Source Temporal Artery Scan Pulse Rate 105 H Pulse Rate [Apical] 86 Pulse Rate from SpO2 Sensor Pulse Rhythm [Apical] Regular Respiratory Rate 22 16 Respiratory Depth Blood Pressure 110/63 118/75 Blood Pressure [Right Arm] 118/75 Blood Pressure Mean 78 89 Blood Pressure Mean [Right Arm] 89 Pulse Oximetry 96 96 Oxygen Delivery Method Room Air Room Air Sepsis Recent Fever Within 48 Hours No Sepsis New/Unexplained Change in Mental Status N/A Sepsis Action Taken by Nursing No Action Required 03/21/22 19:11 03/21/22 19:37 03/21/22 19:39 Temperature Temperature Source Pulse Rate 87 86 Pulse Rate [Apical] Pulse Rate from SpO2 Sensor 84 Pulse Rhythm [Apical] Respiratory Rate 16 24 Respiratory Depth Blood Pressure 147/75 H Blood Pressure [Right Arm] Blood Pressure Mean 99 Blood Pressure Mean [Right Arm] Pulse Oximetry 99 Oxygen Delivery Method Sepsis Recent Fever Within 48 Hours Sepsis New/Unexplained Change in Mental Status Sepsis Action Taken by Nursing 03/21/22 19:39 03/21/22 20:05 03/21/22 21:00 Temperature Temperature Source Pulse Rate 96 H Pulse Rate [Apical] 82 Pulse Rate from SpO2 Sensor 96 H 101 H Pulse Rhythm [Apical] Regular Respiratory Rate 19 13 Respiratory Depth Normal Blood Pressure Blood Pressure [Right Arm] 114/69 Blood Pressure Mean Blood Pressure Mean [Right Arm] 84 Pulse Oximetry 100 97 98 Oxygen Delivery Method Room Air Sepsis Recent Fever Within 48 Hours Sepsis New/Unexplained Change in Mental Status Sepsis Action Taken by Nursing 03/21/22 21:14 03/21/22 21:30 Temperature Temperature Source Pulse Rate 84 96 H Pulse Rate [Apical] Pulse Rate from SpO2 Sensor Pulse Rhythm [Apical] Respiratory Rate 19 20 Respiratory Depth Blood Pressure 114/69 119/80 Blood Pressure [Right Arm] Blood Pressure Mean 84 93 Blood Pressure Mean [Right Arm] Pulse Oximetry 97 98 Oxygen Delivery Method Sepsis Recent Fever Within 48 Hours Sepsis New/Unexplained Change in Mental Status Sepsis Action Taken by Nursing Laboratory Data Result diagrams: 03/21/22 13:55 03/21/22 13:55 Lab Results 03/21/22 03/21/22 03/21/22 Range/Units 13:55 13:55 13:55 WBC 5.98 (4.8-10.8) K/ul RBC 3.48 L (3.93-5.22) M/uL Hgb 11.6 L (12.0-16.0) g/dl Hct 35.5 (34.1-44.9) % MCV 102.0 H (80.0-100.0) fL MCH 33.3 (25.0-34.0) pg MCHC 32.7 (32.0-36.0) g/dL RDW Std Deviation 67.2 H (36.4-46.3) fL RDW Coeff of Maru 18.2 H (11.5-14.5) % Plt Count 285 (130-400) K/uL MPV 9.4 (9.4-12.3) fL Immature Gran % (Auto) 0.5 % Neut % (Auto) 83.0 % Lymph % (Auto) 7.9 % [place] % (Auto) 8.0 % Eos % (Auto) 0.3 % Baso % (Auto) 0.3 % Neut # (Auto) 4.96 (1.4-6.5) K/uL Lymph # (Auto) 0.47 L (1.2-3.4) K/uL [place] # (Auto) 0.48 (0.24-0.82) K/uL Eos # (Auto) 0.02 (0-0.50) K/uL Baso # (Auto) 0.02 (0-0.2) K/uL Immature Gran # (Auto) 0.03 H (0.00-0.02) K/uL Sodium 141 (136-145) mmol/L Potassium 3.5 (3.5-5.1) mmol/L Chloride 107 (98-107) mmol/L Carbon Dioxide 28 (21-32) mmol/L Anion Gap 6 (3-11) BUN 12 (6-23) mg/dl Creatinine 0.87 (0.6-1.2) mg/dl Est Cr Clr Drug Dosing 50.3 ml/min Est GFR ( Amer) 80.5 ml/min Est GFR (Non-Af Amer) 69.4 ml/min BUN/Creatinine Ratio 13.8 (10-20) Glucose 98 (70-99(Fasting)) mg/dl Calcium 8.4 L (8.5-10.1) mg/dl Total Bilirubin 0.3 (0.2-1.0) mg/dl AST 18 (13-39) U/L ALT 13 (7-52) U/L Alkaline Phosphatase 78 (34-104) U/L Troponin I High Sens (0-14) pg/ml B-Natriuretic Peptide 103 H (0-100) pg/ml Total Protein 5.7 L (6.0-8.3) gm/dl Albumin 2.9 L (3.4-5.0) gm/dl Globulin 2.8 (2.5-4.0) gm/dl Albumin/Globulin Ratio 1.0 (0.9-2) Lipase 47 (11-82) U/L Urine Color Urine Appearance (Clear) Urine pH (4.5-7.5) Ur Specific [place] (1.000-1.030) Urine Protein (Negative) Urine Glucose (UA) (Negative) Urine Ketones (Negative) Urine Blood (Negative) Urine Nitrite (Negative) Urine Bilirubin (Negative) Urine Urobilinogen (Negative) Ur Leukocyte Esterase (Negative) Urine WBC (Auto) (0-5) /hpf Urine RBC (Auto) (0-4) /hpf U Hyaline Cast (Auto) (0-5) /lpf U Epithel Cells (Auto) (0-5) /lpf Urine Bacteria (Auto) (Negative) Urine Crystals (None Prsent) Calcium Oxalate Crystal (None Prsent) Urine Mucus (None Prsent) SARS-CoV-2, RNA, NAAT (NEGATIVE) 03/21/22 03/21/22 03/21/22 Range/Units 19:27 19:30 21:22 WBC (4.8-10.8) K/ul RBC (3.93-5.22) M/uL Hgb (12.0-16.0) g/dl Hct (34.1-44.9) % MCV (80.0-100.0) fL MCH (25.0-34.0) pg MCHC (32.0-36.0) g/dL RDW Std Deviation (36.4-46.3) fL RDW Coeff of Maru (11.5-14.5) % Plt Count (130-400) K/uL MPV (9.4-12.3) fL Immature Gran % (Auto) % Neut % (Auto) % Lymph % (Auto) % [place] % (Auto) % Eos % (Auto) % Baso % (Auto) % Neut # (Auto) (1.4-6.5) K/uL Lymph # (Auto) (1.2-3.4) K/uL [place] # (Auto) (0.24-0.82) K/uL Eos # (Auto) (0-0.50) K/uL Baso # (Auto) (0-0.2) K/uL Immature Gran # (Auto) (0.00-0.02) K/uL Sodium (136-145) mmol/L Potassium (3.5-5.1) mmol/L Chloride (98-107) mmol/L Carbon Dioxide (21-32) mmol/L Anion Gap (3-11) BUN (6-23) mg/dl Creatinine (0.6-1.2) mg/dl Est Cr Clr Drug Dosing ml/min Est GFR ( Amer) ml/min Est GFR (Non-Af Amer) ml/min BUN/Creatinine Ratio (10-20) Glucose (70-99(Fasting)) mg/dl Calcium (8.5-10.1) mg/dl Total Bilirubin (0.2-1.0) mg/dl AST (13-39) U/L ALT (7-52) U/L Alkaline Phosphatase (34-104) U/L Troponin I High Sens 5.4 (0-14) pg/ml B-Natriuretic Peptide (0-100) pg/ml Total Protein (6.0-8.3) gm/dl Albumin (3.4-5.0) gm/dl Globulin (2.5-4.0) gm/dl Albumin/Globulin Ratio (0.9-2) Lipase (11-82) U/L Urine Color Yellow Urine Appearance Turbid A (Clear) Urine pH 5.5 (4.5-7.5) Ur Specific [place] 1.021 (1.000-1.030) Urine Protein 2+ H (Negative) Urine Glucose (UA) Negative (Negative) Urine Ketones Trace H (Negative) Urine Blood 3+ H (Negative) Urine Nitrite Positive A (Negative) Urine Bilirubin Negative (Negative) Urine Urobilinogen Negative (Negative) Ur Leukocyte Esterase 2+ H (Negative) Urine WBC (Auto) >30 H (0-5) /hpf Urine RBC (Auto) 10-30 H (0-4) /hpf U Hyaline Cast (Auto) 1-5 (0-5) /lpf U Epithel Cells (Auto) 20-30 H (0-5) /lpf Urine Bacteria (Auto) Negative (Negative) Urine Crystals Calcium Oxalate A (None Prsent) Calcium Oxalate Crystal Present A (None Prsent) Urine Mucus Present A (None Prsent) SARS-CoV-2, RNA, NAAT NEGATIVE (NEGATIVE) Administered Medications Discontinued Medications Furosemide (Furosemide 40 Mg/4 Ml Vial) 40 mg IV NOW STA Stop: 03/21/22 19:28 Last Admin: 03/21/22 19:39 Dose: 40 mg Documented By: EMB Ceftriaxone Sodium (Rocephin) 2,000 mg in 70 mls @ 140 mls/hr IV NOW STA Stop: 03/21/22 21:30 Last Infusion: 03/21/22 21:55 Dose: 0 mls/hr Documented By: Admin: 03/21/22 21:13 Dose: 140 mls/hr Documented By: EMB Potassium Chloride (Potassium Chloride Crtab 20 Meq Tabcr) 40 meq PO NOW STA Stop: 03/21/22 19:28 Last Admin: 03/21/22 19:39 Dose: 40 meq Documented By: EMB Imaging Data Radiologist's Impression: Abdomen/Pelvis CT 03/21/22 16:06 CT abd pelvis wo con CLINICAL HISTORY: poss urinary obstruc TECHNIQUE: Helical axial images of the abdomen and pelvis were obtained. Automated dose lowering techniques and/or adjustment according to patient size were utilized for this exam. This exam was performed without intravenous contrast. CT DOSE: 237.99 mGy.cm COMPARISON: Comparison is made to CT abdomen pelvis 03/12/2022 FINDINGS: Lower chest: No acute abnormality. Liver: Unremarkable. No focal lesions are seen. Gallbladder and biliary tree: The gallbladder is contracted. No intra- or extrahepatic biliary ductal dilation. Pancreas: Unremarkable, no focal lesions. Spleen: Unremarkable. Adrenals: Unremarkable. Kidneys and ureters: Nonobstructive nephrolithiasis is seen. Small cysts are seen bilaterally. Bladder: Limited evaluation due to underdistention. Reproductive organs: Unremarkable. Bowel: Unremarkable. Lymph nodes Retroperitoneal: Unremarkable. Pelvic: Unremarkable. Mesenteric: Unremarkable. Peritoneum: Normal. Vessels: Atherosclerotic calcifications are seen. Numerous phleboliths are seen. Abdominal wall: Unremarkable. Bones: Degenerative changes in the visualized spine. IMPRESSION: 1. No acute abnormalities and in particular no evidence of urinary obstruction. Nonobstructive stones and renal cysts are seen. 2. The gallbladder is again noted to be contracted. ACT 112: Negative or not required by law. Electronically signed by: Chucky Cordova M.D. 03/21/2022 5:13 PM Chest X-Ray 03/21/22 19:12 XR chest 1V portable CLINICAL HISTORY: swelling of legs TECHNIQUE: Single frontal radiograph of the chest was obtained. Comparison: Comparison is made to chest radiograph 03/12/2022 FINDINGS: No lines and tubes are seen. Calcified aortic knob is seen. The lungs are clear. No evidence of pleural effusion or pneumothorax. IMPRESSION: No acute abnormality and in particular no evidence of pulmonary edema. ACT 112: Negative or not required by law. Electronically signed by: Chucky Cordova M.D. 03/21/2022 7:59 PM Discharge Plan Visit Data Chief Complaint: Abdominal Pain Stated Complaint: SWOLLEN LEGS,FEET,HANDS ED Provider: Dieudonne Park Discharge Problem: CHF (congestive heart failure), Acute UTI, Edema Patient Disposition: Admitted As Inpatient Discharge Instructions Interventions: ED Discharge Assessment Last Done: 03/21/22 23:12
[2022-03-21 19:53] LABS: Appearance Urine Turbid (Clear); Bacteria Urine Automated Negative (Negative); Bilirubin Urine Negative (Negative); Blood Urine 3+ (Negative); Color Urine Yellow; Epithelial Cell Urine Auto 20-30 /lpf (0-5); Glucose Urine UA Negative (Negative); Ketones Urine Trace (Negative); Leukocyte Esterase Urine 2+ (Negative); Nitrite Urine Positive (Negative); Protein Urine 2+ (Negative); Specific Gravity Urine 1.021 (1.000-1.030); Urobilinogen Urine Negative (Negative); WBC Urine Automated >30 /hpf (0-5); pH Urine 5.5 (4.5-7.5)
--- NOTE | 2022-03-21 20:01 | XRay Report ---
XR chest 1V portable CLINICAL HISTORY: swelling of legs TECHNIQUE: Single frontal radiograph of the chest was obtained. Comparison: Comparison is made to chest radiograph 03/12/2022 FINDINGS: No lines and tubes are seen. Calcified aortic knob is seen. The lungs are clear. No evidence of pleur al effusion or pneumothorax. IMPRESSION: No acute abnormality and in particular no evidence of pulmonary edema. ACT 112: Negative or not required by law. Electronically signed by: Chucky Cordova M.D. 03/21/2022 7:59 PM
[2022-03-21 20:13] LABS: Calcium Oxalate Crystals Urine Present (None Prsent); Mucus Urine Present (None Prsent)
[2022-03-21] MEDS ORDERED: cefTRIAXone SODIUM 2,000 MG/70 ML BAG IV STA (21:01)
--- NOTE | 2022-03-21 22:06 | History & Physical Report ---
Date of Service March 21, 2022 Assessment & Plan (1) Bilateral lower extremity edema: Plan: New in last week. Concern by ER provider for new CHF; however, I am not convinced as CXR looks clear to me, and she reports weight loss, not weight gain. BNP minimally elevated at 103. Given Lasix 40 mg IV x 1 in the ER. - Defer further Lasix for now - My concern also would be higher DVT due to cancer vs. lymphedema if lymph system was damaged by radiation. - Will get echocardiogram - Dopplers to look for DVT - If both echo and Dopplers negative, would likely treat with local management with TEDs vs. JUDAH wraps rather than further Lasix. (2) UTI (urinary tract infection): Plan: Questionable. Patient has pelvic irritation from radiation, so she chronically has dysuria. No leukocytosis, fevers, new/different pelvic pain. - Will treat with cefepime as per prior culture, but short treatment course and would not test for cure. - Follow urine cx (3) Malignant neoplasm of anus: Plan: Now finished with chemo and radiation therapy. No surgery. BMs non-bloody and returning to normal. - Follow up with her normal oncology providers at [facility]. (4) Migraines: Plan: None at present. - Continue topiramate & sumatriptan PRN - Monitor (5) Depression: Plan: - Continue SSRI (6) Protein calorie malnutrition: Plan: Due to cancer and chemotherapy/radiation for treatment. - Supportive care (7) DVT prophylaxis: Plan: Lovenox 30 mg SQ daily DNR/DNI - Per patient in ER. 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 History of Present Illness Primary Care Provider: Winston Crane MD 66yo F w/ hx of recent early-stage rectal cancer who presents with LE edema. The patient was admitted from 03/12 - 03/15 for a UTI and enteritis. She was slightly low on calcium and magnesium and received some IV fluids. She was recently treated with chemotherapy and radiation for a local rectal cancer. She finished her final radiation fractions on 03/02. She reports that when she went home on 03/15, she noted some mild LE swelling; however, it was not overly bothe rsome, so she did not think much of it. She has not done anything at home to treat it, but has noted that the swelling has become worse over the last week, so she presented to the ER for further evaluation. She is otherwise in stable health from her prior discharge. She is having soft ("mushy") BMs that are normal brown. No blood in the stool or melenic stool. She has some dysuria that she believe is due to the radiation as the entire pelvic area is inflamed. She otherwise denies any f/c/ns, denies nausea or emesis, denies chest pain, shortness of breath, denies new weakness or arthralgias. She reports continued "soreness" in the lower abdominal area that she attributes to not eating well, but does not indicate this has changed recently. Allergies Allergy/AdvReac Type Severity Reaction Status Date / Time oxycodone [From Percocet] Allergy Mild Dizziness Verified 03/21/22 19:29 ciprofloxacin [From Cipro] Allergy Unknown Unknown Verified 03/21/22 19:29 levofloxacin Allergy Unknown Unknown Verified 03/21/22 19:29 metronidazole Allergy Unknown Unknown Verified 03/21/22 19:29 morphine Allergy Unknown Drowsy Verified 03/21/22 19:29 moxifloxacin Allergy Unknown Unknown Verified 03/21/22 19:29 Penicillins Allergy Unknown Unknown Verified 03/21/22 19:29 Sulfa (Sulfonamide Allergy Unknown Unknown Verified 03/21/22 19:29 Antibiotics) Home Medications Medication Instructions Recorded Confirmed Type Lactobacillus acidophilus 10 5,000 mmu cells PO DAILY 12/23/21 03/21/22 History billion cell capsule acetaminophen 500 mg tablet 500 mg PO QID PRN Pain 12/23/21 03/21/22 History (Tylenol Extra Strength) lqnsnmn-xqzflszpfhiwa-wwslpotl 250 1 tab PO Q6H PRN Headache 12/23/21 03/21/22 History mg-250 mg-65 mg tablet (Excedrin Migraine) cyclobenzaprine 10 mg tablet 10 mg PO TID PRN Muscle Spasm 12/23/21 03/21/22 History docusate sodium 100 mg capsule 100 mg PO BID 12/23/21 03/21/22 History (Colace) hydrocodone 5 mg-acetaminophen 325 1 tab PO Q6H PRN Pain 12/23/21 03/21/22 History mg tablet ibuprofen 200 mg capsule (Motrin 200 mg PO Q6H PRN Pain 12/23/21 03/21/22 History IB) magnesium 250 mg tablet 500 mg PO BID 12/23/21 03/21/22 History ranitidine HCl 150 mg tablet 150 mg PO DAILY PRN Acid Reflux 12/23/21 03/21/22 History sumatriptan succinate 100 mg 100 mg PO Q2H PRN Migraine Headache 12/23/21 03/21/22 History tablet (Imitrex) topiramate 100 mg tablet (Topamax) 100 mg PO BID 12/23/21 03/21/22 History diazepam 2 mg tablet 2 mg PO Q6H PRN Muscle Spasm 03/12/22 03/21/22 History naproxen 220 mg-pseudoephedrine 1 tab PO BID PRN Flu Symptoms 03/12/22 03/21/22 History 120 mg ER tablet, extend release,12 hr (Aleve Cold and Sinus) escitalopram oxalate 10 mg tablet 5 mg PO QAM #20 tabs 03/15/22 03/21/22 Rx Past Med/Surg History Medical History Kidney stones Malignant neoplasm of anus 11/18/21 Melanoma Removed from left scapula area Migraines Right trigger finger Had surgery for this Surgical History H/O right breast biopsy 4 yrs ago - benign History of hysterectomy Complete History of surgery 11/18/21 Anal/rectal exam under anesthesia Family History Mother , 48yo Breast cancer Father , 52yo Multiple myeloma Myocardial infarction Brother No problems noted. Sister No problems noted. Sister Hypertension Son No problems noted. 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 Beliefs That Will Affect Care: None marital status: Current Living Situation: Alone current occupational status: retired current occupation: RN How many Children do You have: 1 Feels Safe at Home: Yes Childhood Exposure to Second-Hand Smoke: No caffeine: Yes (6 cups/day) during the past year weight has: decreased > 10 lbs Assistive Devices: Glasses Review of Systems Review of Systems: All systems reviewed & are unremarkable except as noted in HPI & below Physical Exam Constitutional: WD/WN, vitals as above Eyes: EOM intact bilaterally; no conjunctival abnormality ENMT: external ear and nose normal, oropharynx normal Neck: trachea midline, no thyromegaly normal visual inspection Respiratory: normal respiratory effort, lungs clear to auscultation no respiratory distress Cardiovascular: Rate/Rhythm: regular rate and regular rhythm Extremities: + edema (1+ pitting edema to knees b/l) Gastrointestinal (Abdomen): Inspection/Auscultation: abdomen normal to inspection; abdomen not distended Musculoskeletal: no cyanosis or clubbing, extremities motor strength 5/5 Skin: no rashes, warm and dry Neurologic: moves all extremities and awake Psychiatric: Orientation: alert, oriented to person and cooperative Results & Data Results & Data ([facility]) Vital Signs (Past 12 Hours) Vital Signs Temp Pulse Pulse Resp BP BP Pulse Ox 03/21/22 21:00 82 13 114/69 98 03/21/22 20:05 97 03/21/22 19:39 96 H 19 100 03/21/22 19:39 147/75 H 03/21/22 19:37 86 24 03/21/22 19:11 87 16 99 03/21/22 19:10 118/75 03/21/22 19:33 86 16 118/75 96 03/21/22 12:34 37.0 C 105 H 22 110/63 96 O2 Del Method 03/21/22 21:00 Room Air 03/21/22 20:05 03/21/22 19:39 03/21/22 19:39 03/21/22 19:37 03/21/22 19:11 03/21/22 19:10 03/21/22 19:33 Room Air 03/21/22 12:34 Room Air Code Status & VTE Plan VTE Prophylaxis Plan VTE Prophylaxis will be ordered: Yes PG Care Time/CCT Total # of Minutes Spent Total Time Spent with Patient: Total time spent is greater than 50% in coordination of care (as documented) at patient's floor/unit and/or counseling patient: Coding Level of Care Code 02646 Initial Inpt Care Lvl 3 Diagnoses Bilateral lower extremity edema R60.0 UTI (urinary tract infection) N39.0 Malignant neoplasm of anus C21.0 Migraines G43.909 Depression F32.A Protein calorie malnutrition E46 DVT prophylaxis Z29.9
[2022-03-21] MEDS ORDERED: ACETAMINOPHEN 500 MG TAB PO PRN (23:12)
[2022-03-21] MEDS ORDERED: diazePAM 2 MG TABLET PO PRN (23:12)
[2022-03-21] MEDS ORDERED: CYCLOBENZAPRINE HCL 10 MG TAB PO PRN (23:12)
[2022-03-21] MEDS ORDERED: HYDROCODONE/ACETAMOPHEN 5/325MG TAB PO PRN (23:12)
[2022-03-21] MEDS ORDERED: ONDANSETRON INJ 2 MG/ML 2 ML VIAL IV PRN (23:12)
[2022-03-21] MEDS ORDERED: FAMOTIDINE 20 MG TAB PO PRN (23:32)
[2022-03-22] MEDS ORDERED: CEFEPIME 1,000 MG in SYRINGE 0 ML IV SCH
[2022-03-22] MEDS ORDERED: CEFEPIME 1,000 MG in SYRINGE 0 ML IV ONE (04:15)
[2022-03-22 06:40] LABS: Hematocrit (blood only) 32.8 % (34.1-44.9); Hemoglobin 10.8 g/dl (12.0-16.0); Mean Corpuscular Hemoglobin 32.6 pg (25.0-34.0); Mean Corpuscular Hgb Conc 32.9 g/dL (32.0-36.0); Mean Corpuscular Volume 99.1 fL (80.0-100.0); Mean Platelet Volume 9.3 fL (9.4-12.3); Platelet Count 268 K/uL (130-400); RDW Coefficient of Variation 17.2 % (11.5-14.5); Red Blood Count 3.31 M/uL (3.93-5.22)
--- NOTE | 2022-03-22 07:07 | Ultrasound Report ---
ULTRASOUND BILATERAL LOWER EXTREMITY VENOUS CLINICAL HISTORY: Lower extremity edema. COMPARISON STUDY: No priors. TECHNIQUE: Real-time, grayscale, and color Doppler sonography of the deep veins of the right and left lower extremity was performed from the inguinal crease to the calf. Compression and augmentation wer e utilized. FINDINGS: There is no sonographic evidence of deep venous thrombosis identified in the right or left lower extremity. The common femoral, superficial femoral, and popliteal veins are patent and normally compressible bilaterally. The greater saphenous vein and the profunda femoris vein at the junction w ith the common femoral vein are clear in both legs. The visualized calf veins are patent bilaterally. Soft tissue edema is seen in both legs. IMPRESSION: There is no sonographic evidence of deep venous thrombosis identified in the right or lef t lower extremity. ACT 112: Negative or not required by law. Electronically signed by: Chang Lopez M.D. 03/22/2022 7:05 AM
[2022-03-22 07:18] LABS: Calcium 7.8 mg/dl (8.5-10.1); Est GFR (African American) 87.7 ml/min; Est GFR (Non-African American) 75.7 ml/min; Magnesium 1.8 mg/dl (1.7-2.4); Potassium 3.7 mmol/L (3.5-5.1)
[2022-03-22] MEDS ORDERED: ESCITALOPRAM OXALATE 10 MG TAB PO SCH (09:00)
[2022-03-22] MEDS ORDERED: ENOXAPARIN INJ 30 MG/0.3 ML SYR SQ SCH (09:00)
[2022-03-22] MEDS ORDERED: TOPIRAMATE 100 MG TAB PO SCH (09:00)
--- NOTE | 2022-03-22 09:43 | Electrocardiogram Report ---
Test Reason : Blood Pressure : / mmHG Vent. Rate : 082 BPM Atrial Rate : 082 BPM P-R Int : 132 ms QRS Dur : 082 ms QT Int : 358 ms P-R-T Axes : 072 031 073 degrees QTc Int : 418 ms Normal sinus rhythm Possible Left atrial enlargement Borderline ECG When compared with ECG of 12-MAR-2022 12:11, Questionable change in QRS axis Nonspecific T wave abnormality no longer evident in Lateral leads QT has shortened Confirmed by Ck Marshall ([id number]) on 03/22/2022 9:43:04 AM Referred By: Winston Crane Confirmed By:Nolan Marshall
[2022-03-22] MEDS ORDERED: CEFEPIME 2,000 MG in SYRINGE 0 ML IV SCH (16:00)
--- NOTE | 2022-03-22 17:08 | XCELERA ---
[id number]
--- NOTE | 2022-03-22 17:28 | Discharge Summary ---
Date of Service March 22, 2022 Admission HPI Per Admitting Provider 66yo F w/ hx of recent early-stage rectal cancer who presents with LE edema. The patient was admitted from 03/12 - 03/15 for a UTI and enteritis. She was slightly low on calcium and magnesium and received some IV fluids. She was recently treated with chemotherapy and radiation for a local rectal cancer. She finished her final radiation fractions on 03/02. She reports that when she went home on 03/15, she noted some mild LE swelling; however, it was not overly bothersome, so she did not think much of it. She has not done anything at home to treat it, but has noted that the swelling has become worse over the last week, so she presented to the ER for further evaluation. She is otherwise in stable health from her prior discharge. She is having soft ("mushy") BMs that are normal brown. No blood in the stool or melenic stool. She has some dysuria that she believe is due to the radiation as the entire pelvic area is inflamed. She otherwise denies any f/c/ns, denies nausea or emesis, denies chest pain, shortness of breath, denies new weakness or arthralgias. She reports continued "soreness" in the lower abdominal area that she attributes to not eating well, but does not indicate this has changed recently. Admission Exam Per Admitting Provider Constitutional: WD/WN, vitals as above Eyes: EOM intact bilaterally; no conjunctival abnormality ENMT: external ear and nose normal, oropharynx normal Neck:L trachea midline, no thyromegaly normal visual inspection Respiratory: normal respiratory effort, lungs clear to auscultation no respiratory distress Cardiovascular: Rate/Rhythm: regular rate and regular rhythm Extremities: + edema (1+ pitting edema to knees b/l) Gastrointestinal (Abdomen): Inspection/Auscultation: abdomen normal to inspection; abdomen not distended Musculoskeletal: no cyanosis or clubbing, extremities motor strength 5/5 Skin: no rashes, warm and dry Neurologic: moves all extremities and awake Psychiatric: Orientation: alert, oriented to person and cooperative Principal Diagnosis Lower extremity edema Discharge Exam Constitutional WD/WN, vitals as above Eyes + anicteric sclerae ENMT external ear and nose normal, oropharynx normal Neck trachea midline, no thyromegaly Respiratory normal respiratory effort, lungs clear to auscultation Cardiovascular RRR, no murmur, no edema Extremities: + pedal edema (+2 LE edema ) Musculoskeletal Head/Neck/Chest: normocephalic and head atraumatic Skin no rashes, warm and dry Neurologic moves all extremities Psychiatric A+Ox3, euthymic affect Discharge Data Allergies Allergy/AdvReac Type Severity Reaction Status Date / Time oxycodone [From Percocet] Allergy Mild Dizziness Verified 03/21/22 19:29 ciprofloxacin [From Cipro] Allergy Unknown Unknown Verified 03/21/22 19:29 levofloxacin Allergy Unknown Unknown Verified 03/21/22 19:29 metronidazole Allergy Unknown Unknown Verified 03/21/22 19:29 morphine Allergy Unknown Drowsy Verified 03/21/22 19:29 moxifloxacin Allergy Unknown Unknown Verified 03/21/22 19:29 Penicillins Allergy Unknown Unknown Verified 03/21/22 19:29 Sulfa (Sulfonamide Allergy Unknown Unknown Verified 03/21/22 19:29 Antibiotics) Consultations 03/21/22 21:05 ED Decision to Admit Stat Ordered Studies 03/21/22 16:06 CT abd pelvis wo con Stat 03/22/22 US venous doppler LE BI Routine Hospital Course (1) Bilateral lower extremity edema: Mrs. Skinner is a 66 yo F with a recent diagnosis of early stage rectal cancer who was admitted with new LE edema. - LE edema was a new symptom that began in the last week - etiology is uncertain: - CHF seems unlikley as BNP only minimally elevated to 103 and CXR showed no pulm vasc congestion. Echo was obtained and showed normal systolic function. One dose of IV lasix had been given in the ED. - Patient had CT abdomen and pelvis to assess for proximal vascular congestion, it was normal - Venous dopplers done, neg bilaterally - suspect due to low albumin (low oncotic pressure) vs. vs. lymphedema if lymph system was damaged by recent radiation therapy. Cipriano hoses applied prior to discharge. Advised her to elevated legs at least 3 times per day for 20 minutes above heart level. (2) UTI (urinary tract infection): - There was concern for this on admission - Patient has pelvic irritation from radiation, so she chronically has dysuria. No leukocytosis, fevers, new/different pelvic pain. - She was given a dose of cefepime, but this was stopped when urine culture returned negative (3) Malignant neoplasm of anus: Now finished with chemo and radiation therapy. No surgery. BMs non-bloody and returning to normal. - Follow up with her normal oncology providers at [facility]. (4) Migraines: None at present. - Continue topiramate & sumatriptan PRN - Monitor (5) Depression: - Continue SSRI (6) Protein calorie malnutrition: Due to cancer and chemotherapy/radiation for treatment. - albumin only at 2.9. Prealbumin is a single digit. Encouraged nutrition supplements - patient says she appetite is returning (7) DVT prophylaxis: Total Time Total Time Spent Total Time Spent (In Minutes): 35 Total Time Includes: Examination of the Patient, Discharge Planning and Medication Reconciliation Discharge Plan Discharge Items Patient Disposition: Home - Self-Care Reason For Visit: LE EDEMA Discharge Diagnosis: Lower extremity edema Activity: Resume your previous activity Non-emergency contact: Primary Care Provider Call non-emergency contact if: your symptoms worsen Follow-up/Referrals: Winston Crane MD [Primary Care Provider] - Diet: Regular Addtl Attending Provider Instructions: You were hospitalized at [facility] for evaluation of lower leg swelling. Blood work and imaging studies were done to assess your condition. No blood clots were found in your legs. Your echocardiogram was normal. Your chest Xray was normal. A cat scan of you abdomen and pelvis was normal. Your blood albumin (which is a protein) level was low, concerning for malnutrition. We discussed how you lost a lot of weight during your cancer treatment. We recommend you try to liberally eat - do not restrict caloric intake. Increasing your protein intake would be beneficial. To help reduce welling in your legs: elevate them above heart level, for 20 minutes, at least three times per day. Also advise you to wear compression stockings when awake (not while sleeping). Please follow up with your PCP within one week. Pending Studies at Discharge: No Stand-Alone Forms: My [employer], Smoking Cessation Medications and DC Order Prescriptions: Continued cyclobenzaprine 10 mg tablet 10 mg PO TID PRN (Reason: Muscle Spasm) ibuprofen [Motrin IB] 200 mg capsule 200 mg PO Q6H PRN (Reason: Pain) Lactobacillus acidophilus 10 billion cell capsule 5,000 mmu cells PO DAILY magnesium 250 mg tablet 500 mg PO BID sumatriptan succinate [Imitrex] 100 mg tablet 100 mg PO Q2H PRN (Reason: Migraine Headache) Rx Instructions: do not exceed 2 doses per 24 hrs topiramate [Topamax] 100 mg tablet 100 mg PO BID acetaminophen [Tylenol Extra Strength] 500 mg tablet 500 mg PO QID PRN (Reason: Pain) Excedrin Migraine 250-250-65 mg tablet 1 tab PO Q6H PRN (Reason: Headache) ranitidine HCl 150 mg tablet 150 mg PO DAILY PRN (Reason: Acid Reflux) docusate sodium [Colace] 100 mg capsule 100 mg PO BID hydrocodone-acetaminophen 5-325 mg tablet 1 tab PO Q6H PRN (Reason: Pain) diazepam 2 mg tablet 2 mg PO Q6H PRN (Reason: Muscle Spasm) Aleve Cold and Sinus 220-120 mg Tablet Extended Release 12 Hr 1 tab PO BID PRN (Reason: Flu Symptoms) escitalopram oxalate 10 mg Tablet 5 mg PO QAM Qty: 20 0RF Discharge Orders: Discharge Order (Routine); Ordered 03/22/22 Ordered By: Kandice Sharma Admission Data Admit Date/Time: 03/21/22 21:54 Attending Provider: Kandice Sharma Admit Provider: Patrick Owusu Primary Care Provider: Winston Crane Other Providers: Patrick Owusu Other Interventions: Discharge Summary Assessment (RN) Last Done: 03/22/22 18:31 Coding Level of Care Code D/C DAY MANAGEMENT >30 MINS Diagnoses Bilateral lower extremity edema R60.0 UTI (urinary tract infection) N39.0 Malignant neoplasm of anus C21.0 Migraines G43.909 Depression F32.A Protein calorie malnutrition E46 DVT prophylaxis Z29.9
== END 2022-03-22 18:31 | disposition home or self-care (01) | DRG 948 ==
LOC: ED 12:20 → EDINP 21:54 → SUATTDRO 21:54 → INTOOBSV 21:54 → EDINP 23:12